=== PATIENT | male | born 1940 | race American Indian/Alaskan Native ===

== ENCOUNTER → 2023-04-28 10:39 | Outpatient (BNVA) | payer MEDICARE, MEDICAID, SELFPAY | PROVIDERS: Visit Provider Internal Medicine Hypertension Specialist ==

== ENCOUNTER 2023-05-20 13:38 | Outpatient (AMB) | payer MEDICARE, MEDICAID, SELFPAY ==
--- NOTE | 2023-05-20 14:07 | HO.NEPHOV ---
HPI HPI Comments History of Present Illness Details Marky Luna is an 81 year old man with prostate cancer who self referred him to me for flank pain and dark urine. Around 1989? when he underwent a TURP that revealed prostate cancer that was treated with radioactive seeds. In 2005 he had a PSA of 5.2 and in 11/2005 he underwent a set of prostate biopsies which revealed a [place] 6 adenocarcinoma in one location. He reports that he has been on injections (GnRH agonist) for many years and the records indicate that it was intermittent. His PSA decreased to the 2?3 range until 2010 when it was 4.2. It gradually increased until 05/2013 when it was 27.3 and then started to decrease slowly over time to a bing of 7.3 in 07/2016. Imaging in the recent past has not revealed any evidence of metastatic disease (T8 abnormality on bone scan was negative on CT). His PSA has been very gradually trending up (10.9). Oncologist had recommended the addition of enzalutamide which he refused due to side effects. He does not have any hematuria. He denied dysuria, nausea, fever, pedal edema, joint pain, epistaxis, hemoptysis, hematemesis or melena. His renal functions have been normal and his blood pressure is currently at goal. [facility] Medical History (Updated 06/07/23 @ 17:00 by Rigoberto Edmondson MD) Adenoma of colon Cancer of prostate COPD (chronic obstructive pulmonary disease) HTN (hypertension) Lumbar facet joint pain Pancreatic duct dilated Constipation Cervical spinal stenosis Osteoporosis Hyperlipidemia Hearing loss Asthma Surgical History History of partial colectomy H/O arthroscopy of knee S/P TURP (transurethral resection of prostate) Social History Alcohol intake: current Alcohol intake frequency: a few times a week Alcohol type: beer Patient Tobacco Use Status: Never used Tobacco Vital Signs 05/20/23 14:08 Height 5 ft 9 in Weight 119 lb BMI 17.6 BP 130/60 Blood Pressure Location Rt brachial Position Sitting Pulse 82 Pulse Source Pulse Oximeter Pulse Oximetry (%) 97 Oxygen Delivery Method Room Air Physical Exam Vital Signs: Last Vital Signs Pulse 82 05/20/23 14:08 BP 130/60 05/20/23 14:08 Pulse Ox 97 05/20/23 14:08 Oxygen Delivery Method Room Air 05/20/23 14:08 BMI result Body Mass Index 17.6 Const Other: Frail General: comfortable and no acute distress Orientation/consciousness: patient oriented x3 HEENT Head: Yes normocephalic Mouth: Normal oral and palatal mucosa present Eyes EOM: EOMs intact bilaterally Neck Neck: Yes supple Resp Auscultation: clear to auscultation bilaterally Cardio Jugular venous distension: no JVD Rate: regular rate GI Palpation (GI): Soft to palpation Auscultation: normal bowel sounds General: Yes no CVA tenderness Back/Spine/Pelvis Back: no CVA tenderness Skin General skin exam: no rashes or lesions noted Neuro General: patient oriented x3 and moves all extremities Extrem General: Yes no pedal edema Assessment & Plan Assessment & Plan (1) HTN (hypertension): Code(s): I10 - Essential (primary) hypertension Qualifiers: Hypertension type: primary hypertension Qualified Code(s): I10 - Essential (primary) hypertension (2) Dark urine: Code(s): R82.998 - Other abnormal findings in urine Plan Marky has longstanding hypertension with normal renal function. He has prostate cancer and is followed by Urology as well as Oncology. I have ordered urinalysis, urine culture and repeat renal function. He had multiple imaging studies done by Oncology which has not shown any metastatic disease yet. He was encouraged to maintain good hydration and avoid nonsteroidal anti-inflammatories. He is taking nifedipine which is keeping his blood pressure at goal. His volume status is optimal and his recent electrolytes were acceptable. I did not make any medication changes today. I discussed the possibilities which may be causing dark urine and flank pain. Further management is pending evolving data. Answered all questions Orders: Orders Urine Culture 05/20/23 I10 - Essential (primary) hypertension, R82.998 - Other abnormal findings in urine UA and rflx microscopic 05/20/23 I10 - Essential (primary) hypertension, R82.998 - Other abnormal findings in urine Blood Urea Nitrogen 05/20/23 I10 - Essential (primary) hypertension, R82.998 - Other abnormal findings in urine Creatinine 05/20/23 I10 - Essential (primary) hypertension, R82.998 - Other abnormal findings in urine Electrolytes 05/20/23 I10 - Essential (primary) hypertension, R82.998 - Other abnormal findings in urine Coding Level of Care Code New Pt Level 4 (34629) Diagnoses Primary hypertension I10 Hypertension type: primary hypertension Dark urine R82.998 Results Reviewed Nephrology Results: Sodium 142 mmol/L (135-145) 06/02/23 Potassium 3.7 mmol/L (3.3-5.1) 06/02/23 Chloride 109 mmol/L (96-108) H 06/02/23 Carbon Dioxide 25 mmol/L (22-29) 06/02/23 BUN 27 mg/dL (9-16) H 06/02/23 Creatinine 0.79 mg/dL (0.5-1.4) 06/02/23
[2023-05-20 14:08] VITALS: BP 130/60; PULSE 82; O2SAT 97; BMI 17.6
== END 2023-05-20 14:54 | disposition home or self-care (01) ==
PROVIDERS: Visit Provider Internal Medicine Nephrology
DX: I10 Essential (primary) hypertension (principal); R82.998 Other abnormal findings in urine
CPT/HCPCS: 99204

== ENCOUNTER → 2023-05-20 13:38 | Outpatient (BNVA) | payer MEDICARE, MEDICAID, SELFPAY | PROVIDERS: Visit Provider Internal Medicine Nephrology | DX: I10 Essential (primary) hypertension (principal); R82.998 Other abnormal findings in urine | CPT/HCPCS: 99202 ==

== ENCOUNTER 2023-06-02 14:27 | Outpatient (REF) | payer MEDICARE, MEDICAID, SELFPAY ==
[2023-06-02 17:31] LABS: Anion Gap 12 (12-20); Blood Urea Nitrogen 27 mg/dL (9-16); Carbon Dioxide 25 mmol/L (22-29); Chloride 109 mmol/L (96-108); Estimated Glomerular Filt Rate > 60; Potassium 3.7 mmol/L (3.3-5.1); Sodium 142 mmol/L (135-145)
== END 2023-06-02 14:28 | disposition home or self-care (01) ==
LOC: HO.HKASLDS 14:27
PROVIDERS: Visit Provider Internal Medicine Nephrology
DX: I10 Essential (primary) hypertension (principal); R82.998 Other abnormal findings in urine
CPT/HCPCS: 36415; 80051; 82565; 84520

== ENCOUNTER 2023-06-15 08:29 | Outpatient (REF) | payer MEDICARE, MEDICAID, SELFPAY ==
[2023-06-15 13:35] LABS: Appearance Urine Clear; Color Urine Yellow; Glucose Urine UA Negative (Negative); Leukocyte Esterase Urine Negative (Negative); Nitrite Urine Negative (Negative); PH 6.5 (5.0-9.0); Specific Gravity - Urine 1.025 (1.005-1.025); Urine Blood Negative (Negative); Urine Ketones Negative (Negative); Urine Protein Negative (Neg-Trace)
== END 2023-06-15 08:30 | disposition home or self-care (01) ==
LOC: HO.HKASLDS 08:29
PROVIDERS: Visit Provider Internal Medicine Nephrology
DX: R82.998 Other abnormal findings in urine (principal); I10 Essential (primary) hypertension
CPT/HCPCS: 81003; 87086; 99212

== ENCOUNTER 2023-06-15 11:47 | Outpatient (AMB) | payer MEDICARE, MEDICAID, SELFPAY ==
[2023-06-15 11:51] VITALS: BP 140/90; PULSE 71; O2SAT 95
--- NOTE | 2023-06-15 11:51 | HO.NEPHOV ---
HPI HPI Comments History of Present Illness Details Marky Luna is an 81 year old man with prostate cancer who self referred him to me for flank pain and dark urine. Around 1989? when he underwent a TURP that revealed prostate cancer that was treated with radioactive seeds. In 2005 he had a PSA of 5.2 and in 11/2005 he underwent a set of prostate biopsies which revealed a Lionel 6 adenocarcinoma in one location. He reports that he has been on injections (GnRH agonist) for many years and the records indicate that it was intermittent. His PSA decreased to the 2?3 range until 2010 when it was 4.2. It gradually increased until 05/2013 when it was 27.3 and then started to decrease slowly over time to a bing of 7.3 in 07/2016. Imaging in the recent past has not revealed any evidence of metastatic disease (T8 abnormality on bone scan was negative on CT). His PSA has been very gradually trending up (10.9). Oncologist had recommended the addition of enzalutamide which he refused due to side effects. He does not have any hematuria. He denied dysuria, nausea, fever, pedal edema, joint pain, epistaxis, hemoptysis, hematemesis or melena. His renal functions have been normal and his blood pressure is currently at goal. [facility] Medical History (Updated 06/07/23 @ 17:00 by Rigoberto Edmondson MD) Adenoma of colon Cancer of prostate COPD (chronic obstructive pulmonary disease) HTN (hypertension) Lumbar facet joint pain Pancreatic duct dilated Constipation Cervical spinal stenosis Osteoporosis Hyperlipidemia Hearing loss Asthma Surgical History History of partial colectomy H/O arthroscopy of knee S/P TURP (transurethral resection of prostate) Social History Alcohol intake: current Alcohol intake frequency: a few times a week Alcohol type: beer Patient Tobacco Use Status: Never used Tobacco Vital Signs 06/15/23 11:51 Height 5 ft 9 in BP 140/90 H Blood Pressure Location Lt brachial Position Sitting Pulse 71 Pulse Source Pulse Oximeter Pulse Oximetry (%) 95 Oxygen Delivery Method Room Air Physical Exam Vital Signs: Last Vital Signs Pulse 71 06/15/23 11:51 BP 150/90 H 06/15/23 11:51 Pulse Ox 95 06/15/23 11:51 Oxygen Delivery Method Room Air 06/15/23 11:51 Const General: comfortable and no acute distress Orientation/consciousness: patient oriented x3 HEENT Head: Yes normocephalic Mouth: Normal oral and palatal mucosa present Eyes EOM: EOMs intact bilaterally Neck Neck: Yes supple Resp Auscultation: clear to auscultation bilaterally Cardio Jugular venous distension: no JVD Rate: regular rate GI Palpation (GI): Soft to palpation Auscultation: normal bowel sounds General: Yes no CVA tenderness Back/Spine/Pelvis Back: no CVA tenderness Skin General skin exam: no rashes or lesions noted Neuro General: patient oriented x3 and moves all extremities Extrem General: Yes no pedal edema Assessment & Plan Assessment & Plan (1) HTN (hypertension): Code(s): I10 - Essential (primary) hypertension Qualifiers: Hypertension type: primary hypertension Qualified Code(s): I10 - Essential (primary) hypertension (2) Dark urine: Code(s): R82.998 - Other abnormal findings in urine Plan Marky has longstanding hypertension with normal renal function. He has prostate cancer and is followed by Urology as well as Oncology. urinalysis, urine culture is pending. He had multiple imaging studies done by Oncology which has not shown any metastatic disease yet. He was encouraged to maintain good hydration and avoid nonsteroidal anti-inflammatories. He is taking nifedipine which is keeping his blood pressure at goal. His volume status is optimal and his recent electrolytes were acceptable. I did not make any medication changes today. I discussed the possibilities which may be causing dark urine and flank pain. Answered all questions Coding Level of Care Code Est Pt Level 3 (95161) Diagnoses Primary hypertension I10 Hypertension type: primary hypertension Dark urine R82.998 Results Reviewed Nephrology Results: Sodium 142 mmol/L (135-145) 06/02/23 Potassium 3.7 mmol/L (3.3-5.1) 06/02/23 Chloride 109 mmol/L (96-108) H 06/02/23 Carbon Dioxide 25 mmol/L (22-29) 06/02/23 BUN 27 mg/dL (9-16) H 06/02/23 Creatinine 0.79 mg/dL (0.5-1.4) 06/02/23
== END 2023-06-15 12:10 | disposition home or self-care (01) ==
PROVIDERS: Visit Provider Internal Medicine Nephrology
DX: I10 Essential (primary) hypertension (principal); R82.998 Other abnormal findings in urine
CPT/HCPCS: 99213

== ENCOUNTER 2023-12-21 09:05 | Outpatient (AMB) | payer MEDICARE, MEDICAID, SELFPAY ==
[2023-12-21 09:38] VITALS: BP 120/72; PULSE 76; O2SAT 96; BMI 17.8
--- NOTE | 2023-12-21 09:38 | HO.NEPHOV_ITS ---
Vital Signs 12/21/23 09:38 Height 5 ft 9 in Weight 120 lb 6 oz BMI 17.8 BP 120/72 Blood Pressure Location Lt brachial Position Sitting Pulse 76 Pulse Source Pulse Oximeter Pulse Oximetry (%) 96 Oxygen Delivery Method Room Air Intake Visit Reasons: R/S 12/14/23-[facility] Director Required: No Accompanied by: Self / Same As Patient Allergies atenolol Allergy (Mild, Verified 12/21/23 09:40) Rash fluvastatin [From Lescol] Allergy (Mild, Verified 12/21/23 09:40) Rash Penicillins Allergy (Mild, Verified 12/21/23 09:40) Rash Constrast dye Allergy (Mild, Uncoded 04/21/23 15:29) N/V Lisinopril Allergy (Mild, Uncoded 04/21/23 15:29) Rash Sulfa drugs Allergy (Mild, Uncoded 04/21/23 15:29) Rash Verapamil Allergy (Mild, Uncoded 04/21/23 15:29) Rash HPI Comments Details: Marky Luna is an 83 year old man with prostate cancer who self referred him to me for flank pain and dark urine. Around 1989? when he underwent a TURP that revealed prostate cancer that was treated with radioactive seeds. In 2005 he had a PSA of 5.2 and in 11/2005 he underwent a set of prostate biopsies which revealed a [place] 6 adenocarcinoma in one location. He reports that he has been on injections (GnRH agonist) for many years and the records indicate that it was intermittent. His PSA decreased to the 2?3 range until 2010 when it was 4.2. It gradually increased until 05/2013 when it was 27.3 and then started to decrease slowly over time to a bing of 7.3 in 07/2016. Imaging in the recent past has not revealed any evidence of metastatic disease (T8 abnormality on bone scan was negative on CT). His PSA has been very gradually trending up (10.9). Oncologist had recommended the addition of enzalutamide which he refused due to side effects. He does not have any hematuria. He denied dysuria, nausea, fever, pedal edema, joint pain, epistaxis, hemoptysis, hematemesis or melena. His renal functions have been normal and his blood pressure is currently at goal. [facility] Medical History (Updated 06/07/23 @ 17:00 by Rigoberto Edmondson MD) Adenoma of colon Cancer of prostate COPD (chronic obstructive pulmonary disease) HTN (hypertension) Lumbar facet joint pain Pancreatic duct dilated Constipation Cervical spinal stenosis Osteoporosis Hyperlipidemia Hearing loss Asthma Surgical History History of partial colectomy H/O arthroscopy of knee S/P TURP (transurethral resection of prostate) Social History Alcohol intake: current Alcohol intake frequency: a few times a week Alcohol type: beer Patient Tobacco Use Status: Never used Tobacco Review of Systems Const All systems reviewed & are unremarkable except as noted in HPI and below Physical Exam Vital Signs: Last Vital Signs Pulse 76 12/21/23 09:38 BP 120/72 12/21/23 09:38 Pulse Ox 96 12/21/23 09:38 Oxygen Delivery Method Room Air 12/21/23 09:38 BMI result Body Mass Index 17.8 Const General: comfortable and no acute distress Orientation/consciousness: patient oriented x3 HEENT Head: Yes normocephalic Mouth: Normal oral and palatal mucosa present Eyes EOM: EOMs intact bilaterally Neck Neck: Yes supple Resp Auscultation: clear to auscultation bilaterally Cardio Jugular venous distension: no JVD Rate: regular rate GI Palpation (GI): Soft to palpation Auscultation: normal bowel sounds General: Yes no CVA tenderness Back/Spine/Pelvis Back: no CVA tenderness Skin General skin exam: no rashes or lesions noted Neuro General: patient oriented x3 and moves all extremities Extrem General: Yes no pedal edema Results Reviewed Nephrology Results: Sodium 142 mmol/L (135-145) 06/02/23 Potassium 3.7 mmol/L (3.3-5.1) 06/02/23 Chloride 109 mmol/L (96-108) H 06/02/23 Carbon Dioxide 25 mmol/L (22-29) 06/02/23 BUN 27 mg/dL (9-16) H 06/02/23 Creatinine 0.79 mg/dL (0.5-1.4) 06/02/23 Urine Protein Negative mg/dL (Neg-Trace) 06/15/23 Assessment & Plan Assessment & Plan (1) HTN (hypertension): Code(s): I10 - Essential (primary) hypertension Category: Medical Qualifiers: Hypertension type: primary hypertension Qualified Code(s): I10 - Essential (primary) hypertension Plan Marky has longstanding hypertension with normal renal function. He has prostate cancer and is followed by Urology as well as Oncology. He had multiple imaging studies done by Oncology which has not shown any metastatic disease yet. He was encouraged to maintain good hydration and avoid nonsteroidal anti-inflammato oscar. He is taking nifedipine which is keeping his blood pressure at goal. His volume status is optimal and his recent electrolytes were acceptable. I did not make any medication changes today. Answered all questions Coding Level of Care Code Est Pt Level 4 (62105) Diagnoses Primary hypertension I10 Hypertension type: primary hypertension
== END 2023-12-21 09:51 | disposition home or self-care (01) ==
PROVIDERS: Visit Provider Internal Medicine Nephrology
DX: I10 Essential (primary) hypertension (principal)
CPT/HCPCS: 99214

== ENCOUNTER → 2023-12-21 09:05 | Outpatient (BNVA) | payer MEDICARE, MEDICAID, SELFPAY | PROVIDERS: Visit Provider Internal Medicine Nephrology | DX: I10 Essential (primary) hypertension (principal) | CPT/HCPCS: 99212 ==

== ENCOUNTER 2024-06-20 09:11 | Outpatient (AMB) | payer MEDICARE, MEDICAID, SELFPAY ==
--- NOTE | 2024-06-20 09:30 | HO.NEPHOV_ITS ---
Vital Signs 06/20/24 09:35 Height 5 ft 9 in BP 130/70 Blood Pressure Location Rt brachial Position Sitting Intake Visit Reasons: 6 mon follow up-[employer] Supervisor Required: No Accompanied by: Self / Same As Patient Allergies atenolol Allergy (Mild, Verified 06/20/24 09:35) Rash fluvastatin [From Lescol] Allergy (Mild, Verified 06/20/24 09:35) Rash Penicillins Allergy (Mild, Verified 06/20/24 09:35) Rash Constrast dye Allergy (Mild, Uncoded 04/21/23 15:29) N/V Lisinopril Allergy (Mild, Uncoded 04/21/23 15:29) Rash Sulfa drugs Allergy (Mild, Uncoded 04/21/23 15:29) Rash Verapamil Allergy (Mild, Uncoded 04/21/23 15:29) Rash HPI Comments Details: 83 year old man with prostate cancer recently had fall with injuries and was seen in hospital and rehab. Around 1989? when he underwent a TURP that revealed prostate cancer that was treated with radioactive seeds. In 2005 he had a PSA of 5.2 and in 11/2005 he underwent a set of prostate biopsies which revealed a Lionel 6 adenocarcinoma in one location. He reports that he has be en on injections (GnRH agonist) for many years and the records indicate that it was intermittent. His PSA decreased to the 2?3 range until 2010 when it was 4.2. It gradually increased until 05/2013 when it was 27.3 and then started to decrease slowly over time to a bing of 7.3 in 07/2016. Imaging in the recent past has not revealed any evidence of metastatic disease (T8 abnormality on bone scan was negative on CT). His PSA has been very gradually trending up (10.9). Oncologist is seeing him closely. He does not have any hematuria. He denied dysuria, nausea, fever, pedal edema, joint pain, epistaxis, hemoptysis, hematemesis or melena. His renal functions have been normal and his blood pressure is currently at goal. [facility] Medical History (Updated 06/07/23 @ 17:00 by Rigoberto Edmondson MD) Adenoma of colon Cancer of prostate COPD (chronic obstructive pulmonary disease) HTN (hypertension) Lumbar facet joint pain Pancreatic duct dilated Constipation Cervical spinal stenosis Osteoporosis Hyperlipidemia Hearing loss Asthma Surgical History History of partial colectomy H/O arthroscopy of knee S/P TURP (transurethral resection of prostate) Social History Alcohol intake: current Alcohol intake frequency: a few times a week Alcohol type: beer Patient Tobacco Use Status: Never used Tobacco Review of Systems Const All systems reviewed & are unremarkable except as noted in HPI and below Physical Exam Vital Signs: Last Vital Signs BP 130/70 06/20/24 09:35 Const General: comfortable and no acute distress Orientation/consciousness: patient oriented x3 HEENT Head: Yes normocephalic Mouth: Normal oral and palatal mucosa present Eyes EOM: EOMs intact bilaterally Neck Neck: Yes supple Resp Auscultation: clear to auscultation bilaterally Cardio Jugular venous distension: no JVD Rate: regular rate GI Palpation (GI): Soft to palpation Auscultation: normal bowel sounds Neuro General: patient oriented x3 and moves all extremities Extrem General: Yes no pedal edema Assessment & Plan Assessment & Plan (1) HTN (hypertension): Code(s): I10 - Essential (primary) hypertension Category: Medical Qualifiers: Hypertension type: primary hypertension Qualified Code(s): I10 - Essential (primary) hypertension Plan Marky has longstanding hypertension with normal renal function. He has prostate cancer and is followed by Urology as well as Oncology. He had multiple imaging studies done by Oncology which has not shown any metastatic disease yet. He was encouraged to maintain good hydration and avoid nonsteroidal anti- inflammatories. He is taking nifedipine which is keeping his blood pressure at goal. His volume status is optimal and his recent electrolytes were acceptable. I did not make any medication changes today. Answered all questions Orders: Orders Creatinine 6 Months I10 - Essential (primary) hypertension Blood Urea Nitrogen 6 Months I10 - Essential (primary) hypertension Electrolytes 6 Months I10 - Essential (primary) hypertension Calcium 6 Months I10 - Essential (primary) hypertension Coding Level of Care Code Est Pt Level 4 (26096) Diagnoses Primary hypertension I10 Hypertension type: primary hypertension
[2024-06-20 09:35] VITALS: BP 130/70
--- OUTSIDE RECORDS SUMMARY | 2024-06-20 10:14 | XMS_ITS | Clinical Summary ---
Author Organization [address] [facility] Address [address] [place] [address] Phone Care Team Providers Care Sheet Rock Installer Name Role Phone Beth Villarreal MD Primary Care Provider [phone] Encounters Date Type Department Care Team Description 04/11/2024 Lab Requisition [facility] - Main Lab [address] [place] [address] Beth Villarreal MD Chronic obstructive pulmonary disease, unspecified (CMS/HCC) from Last 3 Months Immunizations Name Administration Dates Next Due Moderna SARS-CoV-2 COVID-19, mRNA, LNP-S, preservative free 07/22/2021,03/13/2021 Pfizer SARS-CoV-2 COVID-19, mRNA, LNP-S, preservative free 01/19/2022 Social History Tobacco Use Types Packs/Day Years Used Date Smoking Tobacco: Never Assessed Sex and Gender Information Value Date Recorded Sex Assigned at Not on file Legal Sex Male 5:15 PM EST Gender Identity Not on file Sexual Orientation Not on file Plan of Treatment Health Maintenance Due Date Last Done Comments DTaP,Tdap,and Td Vaccines (1 - Tdap) 08/05/1959 Pneumococcal Vaccine: 50+ Years (1 of 2 - PCV) 08/05/1959 Zoster Vaccines (1 of 2) 1990 RSV Immunization Patients 60+ Years Old (1 - 1-dose 75+ series) 08/05/2015 Cholesterol Screening (Lipid Panel) 03/14/2022 Depression Screening 03/14/2022 Falls Risk Assessment 03/14/2022 Medicare Annual Wellness Visit 03/14/2022 Social Influencers of Health Screening 03/14/2022 COVID-19 Vaccine ( season) 2023 01/19/2022, 07/22/2021, 03/13/2021 Influenza Vaccine (#1) 2023 Hypertension/CHF/CAD Annual BMP Blood Test 04/11/2025 04/11/2024, 02/28/2024, 02/21/2024, Additional history exists HIB Vaccines Aged Out No longer eligi ble based on patient's age to complete this topic HPV Vaccines Aged Out No longer eligi ble based on patient's age to complete this topic Hepatitis A Vaccines Aged Out No long er eligible based on patient's age to complete this topic Hepatitis B Vaccines Aged Out No long er eligible based on patient's age to complete this topic IPV Vaccines Aged Out No longer eligi ble based on patient's age to complete this topic MMR Vaccines Aged Out No longer eligi ble based on patient's age to complete this topic Meningococcal ACWY Vaccine Aged Out N o longer eligible based on patient's age to complete this topic Meningococcal B Vacine Aged Out No lo nger eligible based on patient's age to complete this topic RSV Immunization Patients Under 20 months Aged Out No longer eligible based on patient's age to complete this topic Varicella Vaccines Aged Out No longer eligible based on patient's age to complete this topic Procedures Procedure Name Priority Date/Time Associated Diagnosis Comments BASIC METABOLIC PANEL Routine 04/11/2024 6:05 AM EST Chronic obstructive pulmonary disease, unspecified (CMS/HCC) COMPLETE BLOOD COUNT Routine 04/11/2024 6:05 AM EST Chronic obstructive pulmonary disease, unspecified (CMS/HCC) from Last 3 Months Results * (ABNORMAL) Complete blood count (04/11/2024 6:05 AM EST) [facility] Signature WBC 6.1 4.8 - 10.8 K/[facility] LAB HEMETOLOGY METHOD 04/11/2024 10:24 AM EST [facility] ([facility] LAB RBC 3.90(L) 4.50 - 5.50 M/[facility] LAB HEMETOLOGY METHOD 04/11/2024 10:24 AM [facility] LAB Hemoglobin 11.8(L) 13.5 - 17.5 g/dL LAB HEMETOLOGY METHOD 04/11/2024 10:24 AM [facility] LAB Hematocrit 36.7(L) 42.0 - 54.0 % LAB HEMETOLOGY METHOD 04/11/2024 10:24 AM [facility] LAB MCV 93.4 79.0 - 98.0 FL LAB HEMETOLOGY METHOD 04/11/2024 10:24 AM [facility] LAB MCH 30.0 27.0 - 32.0 pcg LAB HEMETOLOGY METHOD 04/11/2024 10:24 AM [facility] LAB MCHC 32.2 32.0 - 37.0 g/dL LAB HEMETOLOGY METHOD 04/11/2024 10:24 AM [facility] LAB RDW 14.6 11.0 - 15.0 % LAB HEMETOLOGY METHOD 04/11/2024 10:24 AM [facility] LAB Platelets 216 130 - 400 K/mcL LAB HEMETOLOGY METHOD 04/11/2024 10:24 AM [facility] LAB MPV 10.3 7.0 - 11.0 FL LAB HEMETOLOGY METHOD 04/11/2024 10:24 AM [facility] LAB NRBC 0.0 <1.0 % LAB HEMETOLOGY METHOD 04/11/2024 10:24 AM [facility] LAB NRBC Absolute 0.00 <0.10 K/mcL LAB HEMETOLOGY METHOD 04/11/2024 10:24 AM [facility] LAB Blood Venous blood specimen / Unknown Venipuncture / Unknown 04/11/2024 6:05 AM EST 04/11/2024 9:57 AM EST Beth Villarreal MD LAB BLOOD ORDERABLES Final Resul t [facility] LAB [address] [place] [address], * Basic metabolic panel (04/11/2024 6:05 AM EST) Sodium 139 133 - 145 mmol/L LAB CHEMISTRY METHOD 04/11/2024 10:48 AM [facility] LAB Potassium 3.8 3.5 - 5.5 mmol/L LAB CHEMISTRY METHOD 04/11/2024 10:48 AM [facility] LAB Chloride 107 96 - 110 mmol/L LAB CHEMISTRY METHOD 04/11/2024 10:48 AM [facility] LAB CO2 28 21 - 32 mmol/L LAB CHEMISTRY METHOD 04/11/2024 10:48 AM [facility] LAB Anion Gap 4 3 - 11 LAB CHEMISTRY METHOD 04/11/2024 10:48 AM [facility] LAB Glucose 88 70 - 100 mg/dL LAB CHEMISTRY METHOD 04/11/2024 10:48 AM [facility] LAB BUN 20 5 - 25 mg/dL LAB CHEMISTRY METHOD 04/11/2024 10:48 AM [facility] LAB Creatinine 0.78 0.70 - 1.30 mg/dL LAB CHEMISTRY METHOD 04/11/2024 10:48 AM [facility] LAB eGFR 88 >=60 mL/min/1. 73m2 LAB CHEMISTRY METHOD 04/11/2024 10:48 AM [facility] LAB Comment:Calculation based on the??Chronic Kidney Disease Epidemiology Collaboration (CKD-EPI) equation refit??without adjustment for race. BUN/Creatinine Ratio 25.6 LAB CHEMISTRY METHOD 04/11/2024 10:48 AM [facility] LAB Calcium 9.3 8.5 - 10.5 mg/dL LAB CHEMISTRY METHOD 04/11/2024 10:48 AM [facility] LAB Blood Venous blood specimen / Unknown Venipuncture / Unknown 04/11/2024 6:05 AM EST 04/11/2024 9:57 AM EST Beth Villarreal MD LAB BLOOD ORDERABLES Final Resul t [facility] ([facility]) [facility] [address] [place] [address], [place] [phone] from Last 3 [place] [address] MEDICARE MEDICAID - [place] Care Teams Sheet Rock Installer Relationship Specialty Start Date End Date Beth Villarreal MD [address] [place] [address] PCP - General Geriatric Medicine 04/11/24
--- OUTSIDE RECORDS SUMMARY | 2024-06-20 10:14 | XMS_ITS | Encounter Summary ---
Author Organization [facility] Address [address] [place] [address] Care Team Providers Care Motors And Controls Tester Name Role Phone Beth Villarreal MD Primary Care Provider [phone] Encounter Details Date Type Department Care Team (Late st Contact Info) Description 02/12/2024 Lab Requisition [facility] - Main Lab [address] [facility] [place] [address] Beth Villarreal MD [address] [place] [address] Essential (primary) hypertension Social History Tobacco Use Types Packs/Day Years Used Date Smoking Tobacco: Never Assessed Sex and Gender Information Value Date Recorded Sex Assigned at Not on file Legal Sex Male 5:15 PM EST Gender Identity Not on file Sexual Orientation Not on file documented as of this encounter Plan of Treatment Not on file documented as of this encounter Procedures Procedure Name Priority Date/Time Associated Diagnosis Comments TRAVEL PHLEBOTOMY FEE Routine 02/14/2024 8:23 AM EST Essential (primary) hypertension COMPLETE BLOOD COUNT Routine 02/14/2024 8:23 AM EST Essential (primary) hypertension BASIC METABOLIC PANEL Routine 02/14/2024 8:23 AM EST Essential (primary) hypertension documented in this encounter Results * Travel phlebotomy fee (02/14/2024 8:23 AM EST) [facility] TRAVEL PHLEBOTOMY FEE Completed 02/14/2024 2:01 PM [facility] LAB Blood Venous blood specimen / Unknown Venipuncture / Unknown 02/14/2024 8:23 AM EST 02/14/2024 1:24 PM EST us Beth Villarreal MD LAB BLOOD ORDERABLES Final Resul t [facility] LAB [address] [place] [address], * Basic metabolic panel (02/14/2024 8:23 AM EST) Sodium 139 133 - 145 mmol/L LAB CHEMISTRY METHOD 02/14/2024 3:32 PM [facility] LAB Potassium 3.9 3.5 - 5.5 mmol/L LAB CHEMISTRY METHOD 02/14/2024 3:32 PM [facility] LAB Chloride 104 96 - 110 mmol/L LAB CHEMISTRY METHOD 02/14/2024 3:32 PM [facility] LAB CO2 29 21 - 32 mmol/L LAB CHEMISTRY METHOD 02/14/2024 3:32 PM [facility] LAB Anion Gap 6 3 - 11 LAB CHEMISTRY METHOD 02/14/2024 3:32 PM [facility] LAB Glucose 80 70 - 100 mg/dL LAB CHEMISTRY METHOD 02/14/2024 3:32 PM [facility] BUN 13 5 - 25 mg/dL LAB CHEMISTRY METHOD 02/14/2024 3:32 PM [facility] Creatinine 0.92 0.70 - 1.30 mg/dL LAB CHEMISTRY METHOD 02/14/2024 3:32 PM [facility] LAB eGFR 83 >=60 mL/min/1. 73m2 LAB CHEMISTRY METHOD 02/14/2024 3:32 PM [facility] LAB Comment:Calculation based on the??Chronic Kidney Disease Epidemiology Collaboration (CKD-EPI) equation refit??without adjustment for race. BUN/Creatinine Ratio 14.1 LAB CHEMISTRY METHOD 02/14/2024 3:32 PM EST [facility] Calcium 9.8 8.5 - 10.5 mg/dL LAB CHEMISTRY METHOD 02/14/2024 3:32 PM [facility] Blood Venous blood specimen / Unknown Venipuncture / Unknown 02/14/2024 8:23 AM EST 02/14/2024 1:24 PM EST us Beth Villarreal MD LAB BLOOD ORDERABLES Final Resul t [facility] [address] [place] [address], [place] [phone] * (ABNORMAL) Complete blood count (02/14/2024 8:23 AM EST) WBC 5.0 4.8 - 10.8 K/mcL LAB HEMETOLOGY METHOD 02/14/2024 1:57 PM [facility] RBC 3.70(L) 4.50 - 5.50 M/mcL LAB HEMETOLOGY METHOD 02/14/2024 1:57 PM [facility] Hemoglobin 11.1(L) 13.5 - 17.5 g/dL LAB HEMETOLOGY METHOD 02/14/2024 1:57 PM [facility] LAB Hematocrit 35.0(L) 42.0 - 54.0 % LAB HEMETOLOGY METHOD 02/14/2024 1:57 PM [facility] LAB MCV 93.8 79.0 - 98.0 FL LAB HEMETOLOGY METHOD 02/14/2024 1:57 PM [facility] LAB MCH 29.8 27.0 - 32.0 pcg LAB HEMETOLOGY METHOD 02/14/2024 1:57 PM [facility] LAB MCHC 31.7(L) 32.0 - 37.0 g/dL LAB HEMETOLOGY METHOD 02/14/2024 1:57 PM EST [facility] LAB RDW 13.1 11.0 - 15.0 % LAB HEMETOLOGY METHOD 02/14/2024 1:57 PM EST [facility] LAB Platelets 372 130 - 400 K/mcL LAB HEMETOLOGY METHOD 02/14/2024 1:57 PM [facility] LAB MPV 9.6 7.0 - 11.0 FL LAB HEMETOLOGY METHOD 02/14/2024 1:57 PM EST [facility] LAB NRBC 0.0 <1.0 % LAB HEMETOLOGY METHOD 02/14/2024 1:57 PM [facility] LAB NRBC Absolute 0.00 <0.10 K/mcL LAB HEMETOLOGY METHOD 02/14/2024 1:57 PM [facility] LAB Blood Venous blood specimen / Unknown Venipuncture / Unknown 02/14/2024 8:23 AM EST 02/14/2024 1:24 PM EST us Beth Villarreal MD LAB BLOOD ORDERABLES Final Resul t [facility] [address] [place] [address], documented in this encounter Visit Diagnoses Diagnosis Essential (primary) hypertension Unspecified essential hypertension documented in this encounter Care Teams Motors And Controls Tester Relationship Specialty Start Date End Date Beth Villarreal MD [address] [place] [address] [address] [place] [address] PCP - General Geriatric Medicine 04/11/24 documented as of this encounter
--- OUTSIDE RECORDS SUMMARY | 2024-06-20 10:14 | XMS_ITS | Encounter Summary ---
Author Organization [facility] Address [address] [place] [address] Care Team Providers Care Commercial Interior Designer Name Role Phone Beth Villarreal MD Primary Care Provider [phone] Encounter Details Date Type Department Care Team (Late st Contact Info) Description 02/18/2024 Lab Requisition [facility] - Main Lab [address] [facility] [place] [address] Beth Villarreal MD [address] [place] [address] Essential (primary) hypertension Social History Tobacco Use [...] Procedure Name Priority Date/Time Associated Diagnosis Comments COMPLETE BLOOD COUNT Routine 02/21/2024 9:28 AM EST Essential (primary) hypertension BASIC METABOLIC PANEL Routine 02/21/2024 9:28 AM EST Essential (primary) hypertension documented in this encounter Results * Basic metabolic panel (02/21/2024 9:28 AM EST) Sodium 141 133 - 145 mmol/L LAB CHEMISTRY METHOD 02/21/2024 1:25 PM EST [facility] Potassium 4.6 3.5 - 5.5 mmol/L LAB CHEMISTRY METHOD 02/21/2024 1:25 PM [facility] LAB Chloride 107 96 - 110 mmol/L LAB CHEMISTRY METHOD 02/21/2024 1:25 PM [facility] LAB CO2 29 21 - 32 mmol/L LAB CHEMISTRY METHOD 02/21/2024 1:25 PM [facility] LAB Anion Gap 5 3 - 11 LAB CHEMISTRY METHOD 02/21/2024 1:25 PM [facility] LAB Glucose 90 70 - 100 mg/dL LAB CHEMISTRY METHOD 02/21/2024 1:25 PM [facility] BUN 16 5 - 25 mg/dL LAB CHEMISTRY METHOD 02/21/2024 1:25 PM [facility] LAB Creatinine 0.86 0.70 - 1.30 mg/dL LAB CHEMISTRY METHOD 02/21/2024 1:25 PM [facility] LAB eGFR 86 >=60 mL/min/1. 73m2 LAB CHEMISTRY METHOD 02/21/2024 1:25 PM [facility] LAB Comment:Calculation based on the??Chronic Kidney Disease Epidemiology Collaboration (CKD-EPI) equation refit??without adjustment for race. BUN/Creatinine Ratio 18.6 LAB CHEMISTRY METHOD 02/21/2024 1:25 PM [facility] LAB Calcium 9.7 8.5 - 10.5 mg/dL LAB CHEMISTRY METHOD 02/21/2024 1:25 PM [facility] LAB Blood Venous blood specimen / Unknown Venipuncture / Unknown 02/21/2024 9:28 AM EST 02/21/2024 11:54 AM EST us Beth Villarreal MD LAB BLOOD ORDERABLES Final Resul t [facility] LAB [address] [place] [address], * (ABNORMAL) Complete blood count (02/21/2024 9:28 AM EST) [facility] Signature WBC 4.5(L) 4.8 - 10.8 K/mcL LAB HEMETOLOGY METHOD 02/21/2024 1:10 PM [facility] LAB RBC 3.80(L) 4.50 - 5.50 M/mcL LAB HEMETOLOGY METHOD 02/21/2024 1:10 PM [facility] Hemoglobin 11.3(L) 13.5 - 17.5 g/dL LAB HEMETOLOGY METHOD 02/21/2024 1:10 PM [facility] LAB Hematocrit 36.6(L) 42.0 - 54.0 % LAB HEMETOLOGY METHOD 02/21/2024 1:10 PM [facility] LAB MCV 95.8 79.0 - 98.0 FL LAB HEMETOLOGY METHOD 02/21/2024 1:10 PM [facility] LAB MCH 29.6 27.0 - 32.0 pcg LAB HEMETOLOGY METHOD 02/21/2024 1:10 PM [facility] LAB MCHC 30.9(L) 32.0 - 37.0 g/dL LAB HEMETOLOGY METHOD 02/21/2024 1:10 PM [facility] LAB RDW 13.9 11.0 - 15.0 % LAB HEMETOLOGY METHOD 02/21/2024 1:10 PM [facility] LAB Platelets 380 130 - 400 K/mcL LAB HEMETOLOGY METHOD 02/21/2024 1:10 PM [facility] LAB MPV 9.6 7.0 - 11.0 FL LAB HEMETOLOGY METHOD 02/21/2024 1:10 PM [facility] NRBC 0.0 <1.0 % LAB HEMETOLOGY METHOD 02/21/2024 1:10 PM [facility] NRBC Absolute 0.00 <0.10 K/mcL LAB HEMETOLOGY METHOD 02/21/2024 1:10 PM EST [facility] Blood Venous blood specimen / Unknown Venipuncture / Unknown 02/21/2024 9:28 AM EST 02/21/2024 11:58 AM EST Beth Villarreal MD LAB BLOOD ORDERABLES Final Resul t [facility] [address] [place] [address], documented in this encounter Visit Diagnoses Diagnosis Essential (primary) hypertension Unspecified essential hypertension documented in this encounter Care Teams Commercial Interior Designer Relationship Specialty Start Date End Date Beth Villarreal MD [address] [place] [address] [address] [place] [address] PCP - General Geriatric Medicine 04/11/24 documented as of this encounter
--- OUTSIDE RECORDS SUMMARY | 2024-06-20 10:14 | XMS_ITS | Encounter Summary ---
Author Organization [facility] Address [address] [place] [address] Care Team Providers Care Psychologists Name Role Phone Beth Villarreal MD Primary Care Provider [phone] Encounter Details Date Type Department Care Team (Late st Contact Info) Description 02/25/2024 Lab Requisition [facility] - Main Lab [address] [facility] [place] [address] Beth Villarreal MD [address] [place] [address] Essential (primary) hypertension Social History Tobacco Use [...] Associated Diagnosis Comments COMPLETE BLOOD COUNT Routine 02/28/2024 8:33 AM EST Essential (primary) hypertension BASIC METABOLIC PANEL Routine 02/28/2024 8:33 AM EST Essential (primary) hypertension documented in this encounter Results * Basic metabolic panel (02/28/2024 8:33 AM EST) Sodium 142 133 - 145 mmol/L LAB CHEMISTRY METHOD 02/28/2024 3:21 PM EST [facility] Potassium 4.3 3.5 - 5.5 mmol/L LAB CHEMISTRY METHOD 02/28/2024 3:21 PM [facility] Chloride 109 96 - 110 mmol/L LAB CHEMISTRY METHOD 02/28/2024 3:21 PM [facility] CO2 28 21 - 32 mmol/L LAB CHEMISTRY METHOD 02/28/2024 3:21 PM [facility] Anion Gap 5 3 - 11 LAB CHEMISTRY METHOD 02/28/2024 3:21 PM [facility] Glucose 83 70 - 100 mg/dL LAB CHEMISTRY METHOD 02/28/2024 3:21 PM [facility] BUN 16 5 - 25 mg/dL LAB CHEMISTRY METHOD 02/28/2024 3:21 PM [facility] Creatinine 0.83 0.70 - 1.30 mg/dL LAB CHEMISTRY METHOD 02/28/2024 3:21 PM [facility] LAB eGFR 87 >=60 mL/min/1. 73m2 LAB CHEMISTRY METHOD 02/28/2024 3:21 PM [facility] Comment:Calculation based on the??Chronic Kidney Disease Epidemiology Collaboration (CKD-EPI) equation refit??without adjustment for race. BUN/Creatinine Ratio 19.3 LAB CHEMISTRY METHOD 02/28/2024 3:21 PM [facility] Calcium 9.9 8.5 - 10.5 mg/dL LAB CHEMISTRY METHOD 02/28/2024 3:21 PM [facility] Blood Venous blood specimen / Unknown Venipuncture / Unknown 02/28/2024 8:33 AM EST 02/28/2024 11:40 AM EST us eBth Villarreal MD LAB BLOOD ORDERABLES Final Resul t [facility] [address] [place] [address], * (ABNORMAL) Complete blood count (02/28/2024 8:33 AM EST) [facility] WBC 4.2(L) 4.8 - 10.8 K/mcL LAB HEMETOLOGY METHOD 02/28/2024 1:08 PM [facility] RBC 3.90(L) 4.50 - 5.50 M/mcL LAB HEMETOLOGY METHOD 02/28/2024 1:08 PM [facility] Hemoglobin 11.7(L) 13.5 - 17.5 g/dL LAB HEMETOLOGY METHOD 02/28/2024 1:08 PM [facility] Hematocrit 37.3(L) 42.0 - 54.0 % LAB HEMETOLOGY METHOD 02/28/2024 1:08 PM [facility] MCV 95.9 79.0 - 98.0 FL LAB HEMETOLOGY METHOD 02/28/2024 1:08 PM [facility] MCH 30.1 27.0 - 32.0 pcg LAB HEMETOLOGY METHOD 02/28/2024 1:08 PM [facility] MCHC 31.4(L) 32.0 - 37.0 g/dL LAB HEMETOLOGY METHOD 02/28/2024 1:08 PM [facility] RDW 14.2 11.0 - 15.0 % LAB HEMETOLOGY METHOD 02/28/2024 1:08 PM [facility] Platelets 234 130 - 400 K/mcL LAB HEMETOLOGY METHOD 02/28/2024 1:08 PM [facility] MPV 10.1 7.0 - 11.0 FL LAB HEMETOLOGY METHOD 02/28/2024 1:08 PM [facility] NRBC 0.0 <1.0 % LAB HEMETOLOGY METHOD 02/28/2024 1:08 PM [facility] NRBC Absolute 0.00 <0.10 K/mcL LAB HEMETOLOGY METHOD 02/28/2024 1:08 PM EST [facility] Blood Venous blood specimen / Unknown Venipuncture / Unknown 02/28/2024 8:33 AM EST 02/28/2024 11:40 AM EST Beth Villarreal MD LAB BLOOD ORDERABLES Final Resul t [facility] [address] [place] [address], documented in this encounter Visit Diagnoses Diagnosis Essential (primary) hypertension Unspecified essential hypertension documented in this encounter Care Teams Psychologists Relationship Specialty Start Date End Date Beth Villarreal MD [address] [place] [address] [address] [place] [address] PCP - General Geriatric Medicine 04/11/24 documented as of this encounter
--- OUTSIDE RECORDS SUMMARY | 2024-06-20 10:14 | XMS_ITS | Encounter Summary ---
Author Organization [facility] Address [address] [place] [address] Care Team Providers Care Medical Doctor Name Role Phone Beth Villarreal MD Primary Care Provider [phone] Encounter Details Date Type Department Care Team (Late st Contact Info) Description 04/11/2024 Lab Requisition [facility] - Main Lab 299 [facility] [place] [address] Beth Villarreal MD [address] [place] [address] Chronic obstructive pulmonary disease, unspecified (CMS/HCC) Social History Tobacco Use Types Packs/Day Years [...] Associated Diagnosis Comments COMPLETE BLOOD COUNT Routine 04/11/2024 6:05 AM EST Chronic obstructive pulmonary disease, unspecified (CMS/HCC) BASIC METABOLIC PANEL Routine 04/11/2024 6:05 AM EST Chronic obstructive pulmonary disease, unspecified (CMS/HCC) documented in this encounter Results * Basic metabolic panel (04/11/2024 6:05 AM EST) Sodium 139 133 - 145 mmol/L LAB CHEMISTRY METHOD 04/11/2024 10:48 AM [facility] Potassium 3.8 3.5 - 5.5 mmol/L LAB CHEMISTRY METHOD 04/11/2024 10:48 AM [facility] Chloride 107 96 - 110 mmol/L LAB CHEMISTRY METHOD 04/11/2024 10:48 AM [facility] CO2 28 21 - 32 mmol/L LAB CHEMISTRY METHOD 04/11/2024 10:48 AM [facility] Anion Gap 4 3 - 11 LAB CHEMISTRY METHOD 04/11/2024 10:48 AM [facility] Glucose 88 70 - 100 mg/dL LAB CHEMISTRY METHOD 04/11/2024 10:48 AM [facility] BUN 20 5 - 25 mg/dL LAB CHEMISTRY METHOD 04/11/2024 10:48 AM [facility] Creatinine 0.78 0.70 - 1.30 mg/dL LAB CHEMISTRY METHOD 04/11/2024 10:48 AM [facility] eGFR 88 >=60 mL/min/1. 73m2 LAB CHEMISTRY METHOD 04/11/2024 10:48 AM [facility] Comment:Calculation based on the??Chronic Kidney Disease Epidemiology Collaboration (CKD-EPI) equation refit??without adjustment for race. BUN/Creatinine Ratio 25.6 LAB CHEMISTRY METHOD 04/11/2024 10:48 AM [facility] Calcium 9.3 8.5 - 10.5 mg/dL LAB CHEMISTRY METHOD 04/11/2024 10:48 AM [facility] Blood Venous blood specimen / Unknown Venipuncture / Unknown 04/11/2024 6:05 AM EST 04/11/2024 9:57 AM EST us Beth Villarreal MD LAB BLOOD ORDERABLES Final Resul t [facility] [address] [place] [address], [place] [phone] * (ABNORMAL) Complete blood count (04/11/2024 6:05 AM EST) [facility] WBC 6.1 4.8 - 10.8 K/mcL LAB HEMETOLOGY METHOD 04/11/2024 10:24 AM [facility] RBC 3.90(L) 4.50 - 5.50 M/mcL LAB HEMETOLOGY METHOD 04/11/2024 10:24 AM [facility] Hemoglobin 11.8(L) 13.5 - 17.5 g/dL LAB HEMETOLOGY METHOD 04/11/2024 10:24 AM [facility] Hematocrit 36.7(L) 42.0 - 54.0 % LAB HEMETOLOGY METHOD 04/11/2024 10:24 AM [facility] MCV 93.4 79.0 - 98.0 FL LAB HEMETOLOGY METHOD 04/11/2024 10:24 AM [facility] MCH 30.0 27.0 - 32.0 pcg LAB HEMETOLOGY METHOD 04/11/2024 10:24 AM [facility] MCHC 32.2 32.0 - 37.0 g/dL LAB HEMETOLOGY METHOD 04/11/2024 10:24 AM [facility] RDW 14.6 11.0 - 15.0 % LAB HEMETOLOGY METHOD 04/11/2024 10:24 AM [facility] Platelets 216 130 - 400 K/mcL LAB HEMETOLOGY METHOD 04/11/2024 10:24 AM [facility] MPV 10.3 7.0 - 11.0 FL LAB HEMETOLOGY METHOD 04/11/2024 10:24 AM [facility] NRBC 0.0 <1.0 % LAB HEMETOLOGY METHOD 04/11/2024 10:24 AM [facility] NRBC Absolute 0.00 <0.10 K/mcL LAB HEMETOLOGY METHOD 04/11/2024 10:24 AM EST [facility] Blood Venous blood specimen / Unknown Venipuncture / Unknown 04/11/2024 6:05 AM EST 04/11/2024 9:57 AM EST Beth Villarreal MD LAB BLOOD ORDERABLES Final Resul t [facility] [address] [place] [address], documented in this encounter Visit Diagnoses Diagnosis Chronic obstructive pulmonary disease, unspecified (CMS/HCC) documented in this encounter Care Teams Medical Doctor Relationship Specialty Start Date End Date Beth Villarreal MD [address] [place] [address] [address] [place] [address] PCP - General Geriatric Medicine 04/11/24 documented as of this encounter
== END 2024-06-20 09:54 | disposition home or self-care (01) ==
LOC: HO.HKAS 09:12
PROVIDERS: PCP Nurse Practitioner Family; Visit Provider Internal Medicine Nephrology
DX: I10 Essential (primary) hypertension (principal)
CPT/HCPCS: 99214

== ENCOUNTER → 2024-06-20 09:11 | Outpatient (BNVA) | payer MEDICARE, MEDICAID, SELFPAY | PROVIDERS: Visit Provider Internal Medicine Nephrology | DX: I10 Essential (primary) hypertension (principal) | CPT/HCPCS: 99212 ==

== ENCOUNTER 2024-12-19 09:11 | Outpatient (AMB) | payer MEDICARE, MEDICAID, SELFPAY ==
--- NOTE | 2024-12-19 09:28 | HO.NEPHOV ---
Vital Signs 12/19/24 09:31 Height 5 ft 9 in Weight 98 lb 2 oz BMI 14.5 BP 132/82 Blood Pressure Location Lt brachial Position Sitting Intake Visit Reasons: 6mon follow-up w/labs-LVM Environmental Solutions Engineer Required: No Accompanied by: Self / Same As Patient Allergies atenolol Allergy (Mild, Verified 12/19/24 09:31) Rash fluvastatin (From Lescol) Allergy (Mild, Verified 12/19/24 09:31) Rash Penicillins Allergy (Mild, Verified 12/19/24 09:31) Rash Constrast dye Allergy (Mild, Uncoded 04/21/23 15:29) N/V Lisinopril Allergy (Mild, Uncoded 04/21/23 15:29) Rash Sulfa drugs Allergy (Mild, Uncoded 04/21/23 15:29) Rash Verapamil Allergy (Mild, Uncoded 04/21/23 15:29) Rash HPI Comments Details: 83 year old man with prostate cancer was seen in follow up. Around 1989? when he underwent a TURP that revealed prostate cancer that was treated with radioactive seeds. In 2005 he had a PSA of 5.2 and in 11/2005 he underwent a set of prostate biopsies which revealed a [place] 6 adenocarcinoma in one location. He reports that he has been on injections (GnRH agonist) for many years and the records indicate that it was intermittent. His PSA decreased to the 2?3 range until 2010 when it was 4.2. It gradually increased until 05/2013 when it was 27.3 and then started to decrease slowly over time to a bing of 7.3 in 07/2016. Imaging in the recent past has not revealed any evidence of metastatic disease (T8 abnormality on bone scan was negative on CT). His PSA has been very gradually trending up . Oncologist is seeing him closely. He does not have any hematuria. He denied dysuria, nausea, fever, pedal edema, joint pain, epistaxis, hemoptysis, hematemesis or melena. His renal functions have been normal and his blood pressure is currently at goal [facility] Medical History (Updated 06/07/23 @ 17:00 by Rigoberto Edmondson MD) Adenoma of colon Cancer of prostate COPD (chronic obstructive pulmonary disease) HTN (hypertension) Lumbar facet joint pain Pancreatic duct dilated Constipation Cervical spinal stenosis Osteoporosis Hyperlipidemia Hearing loss Asthma Surgical History History of partial colectomy H/O arthroscopy of knee S/P TURP (transurethral resection of prostate) Social History Alcohol intake: current Alcohol intake frequency: a few times a week Alcohol type: beer Patient Tobacco Use Status: Never used Tobacco Review of Systems Const All systems reviewed & are unremarkable except as noted in HPI and below Physical Exam Const General: comfortable and no acute distress Orientation/consciousness: patient oriented x3 HEENT Head: Yes normocephalic Mouth: Normal oral and palatal mucosa present Eyes EOM: EOMs intact bilaterally Neck Neck: Yes supple Resp Auscultation: clear to auscultation bilaterally Cardio Jugular venous distension: no JVD Rate: regular rate GI Palpation (GI): Soft to palpation Auscultation: normal bowel sounds General: Yes no CVA tenderness Back/Spine/Pelvis Back: no CVA tenderness Skin General skin exam: no rashes or lesions noted Neuro General: patient oriented x3 and moves all extremities Extrem General: Yes no pedal edema Results Reviewed Nephrology Results: Sodium, (135-145) 142 mmol/L 06/02/23 Potassium, (3.3-5.1) 3.7 mmol/L 06/02/23 Chloride, (96-108) 109 mmol/L H 06/02/23 Carbon Dioxide, (22-29) 25 mmol/L 06/02/23 BUN, (9-16) 27 mg/dL H 06/02/23 Creatinine, (0.5-1.4) 0.79 mg/dL 06/02/23 Urine Protein, (Neg-Trace) Negative mg/dL 06/15/23 Assessment & Plan Assessment & Plan (1) HTN (hypertension): Code(s): I10 - Essential (primary) hypertension Category: Medical Qualifiers: Hypertension type: primary hypertension Qualified Code(s): I10 - Essential (primary) hypertension Plan Marky has longstanding hypertension with normal renal function. He has prostate cancer and is followed by Urology as well as Oncology. He had multiple imaging studies done by Oncology which has not shown any metastatic disease yet. He was encouraged to maintain good hydration and avoid nonsteroidal anti-inflammatories. He is taking nifedipine which is keeping his blood pressure at goal. His volume status is optimal and his recent electrolytes were acceptable. I did not make any medication changes today. Answered all questions Orders: Orders Electrolytes 7 Months I10 - Essential (primary) hypertension Calcium 7 Months I10 - Essential (primary) hypertension Blood Urea Nitrogen 7 Months I10 - Essential (primary) hypertension Creatinine 7 Months I10 - Essential (primary) hypertension Coding Level of Care Code Est Pt Level 4 (58240) Diagnoses Primary hypertension I10 Hypertension type: primary hypertension
[2024-12-19 09:31] VITALS: BP 132/82; BMI 14.5
--- OUTSIDE RECORDS SUMMARY | 2024-12-19 10:34 | XMS_ITS | Encounter Summary ---
Author Organization [facility] Address [address] [place] [address] Care Team Providers Care Paper Sales Manager Name Role Phone Beth Villarreal MD Primary Care Provider [phone] Encounter Details Date Type Department Care Team (Late st Contact Info) Description 02/18/2024 Lab Requisition [facility] - Main Lab 299 [facility] [place] [address] Beth Villarreal MD [address] [place] [address] Essential (primary) hypertension Social History Tobacco Use [...] LAB CHEMISTRY METHOD 02/21/2024 1:25 PM EST [facility] Potassium 4.6 3.5 - 5.5 mmol/L LAB CHEMISTRY METHOD 02/21/2024 1:25 PM [facility] Chloride 107 96 - 110 mmol/L LAB CHEMISTRY METHOD 02/21/2024 1:25 PM [facility] CO2 29 21 - 32 mmol/L LAB CHEMISTRY METHOD 02/21/2024 1:25 PM [facility] Anion Gap 5 3 - 11 LAB CHEMISTRY METHOD 02/21/2024 1:25 PM [facility] Glucose 90 70 - 100 mg/dL LAB CHEMISTRY METHOD 02/21/2024 1:25 PM [facility] BUN 16 5 - 25 mg/dL LAB CHEMISTRY METHOD 02/21/2024 1:25 PM [facility] Creatinine 0.86 0.70 - 1.30 mg/dL LAB CHEMISTRY METHOD 02/21/2024 1:25 PM [facility] eGFR 86 >=60 mL/min/1. 73m2 LAB CHEMISTRY METHOD 02/21/2024 1:25 PM [facility] Comment:Calculation based on the Chronic Kidney Disease Epidemiology Collaboration (CKD-EPI) equation refit without adjustment for race. BUN/Creatinine Ratio 18.6 LAB CHEMISTRY METHOD 02/21/2024 1:25 PM [facility] Calcium 9.7 8.5 - 10.5 mg/dL LAB CHEMISTRY METHOD 02/21/2024 1:25 PM [facility] Blood Venous blood specimen / Unknown Venipuncture / Unknown 02/21/2024 9:28 AM EST 02/21/2024 11:54 AM EST us Beth Villarreal MD LAB BLOOD ORDERABLES Final Resul t [facility] [address] [place] [address], * (ABNORMAL) Complete blood count (02/21/2024 9:28 AM EST) [facility] WBC 4.5(L) 4.8 - 10.8 K/mcL LAB HEMETOLOGY METHOD 02/21/2024 1:10 PM [facility] RBC 3.80(L) 4.50 - 5.50 M/mcL LAB HEMETOLOGY METHOD 02/21/2024 1:10 PM [facility] Hemoglobin 11.3(L) 13.5 - 17.5 g/dL LAB HEMETOLOGY METHOD 02/21/2024 1:10 PM [facility] Hematocrit 36.6(L) 42.0 - 54.0 % LAB HEMETOLOGY METHOD 02/21/2024 1:10 PM [facility] MCV 95.8 79.0 - 98.0 FL LAB HEMETOLOGY METHOD 02/21/2024 1:10 PM [facility] MCH 29.6 27.0 - 32.0 pcg LAB HEMETOLOGY METHOD 02/21/2024 1:10 PM [facility] MCHC 30.9(L) 32.0 - 37.0 g/dL LAB HEMETOLOGY METHOD 02/21/2024 1:10 PM [facility] RDW 13.9 11.0 - 15.0 % LAB HEMETOLOGY METHOD 02/21/2024 1:10 PM [facility] Platelets 380 130 - 400 K/mcL LAB HEMETOLOGY METHOD 02/21/2024 1:10 PM [facility] MPV 9.6 7.0 - 11.0 FL LAB HEMETOLOGY METHOD 02/21/2024 1:10 PM [facility] NRBC 0.0 <1.0 % LAB HEMETOLOGY METHOD 02/21/2024 1:10 PM [facility] NRBC Absolute 0.00 <0.10 K/mcL LAB HEMETOLOGY METHOD 02/21/2024 1:10 PM EST [facility] Blood Venous blood specimen / Unknown Venipuncture / Unknown 02/21/2024 9:28 AM EST 02/21/2024 11:58 AM EST Beth Villarreal MD LAB BLOOD ORDERABLES Final Resul t [facility] [address] [place] [address], documented in this encounter Visit Diagnoses Diagnosis Essential (primary) hypertension Unspecified essential hypertension documented in this encounter Care Teams Paper Sales Manager Relationship Specialty Start Date End Date Beth Villarreal MD [address] [place] [address] [address] [place] [address] PCP - General Geriatric Medicine 04/11/24 documented as of this encounter
--- OUTSIDE RECORDS SUMMARY | 2024-12-19 10:34 | XMS_ITS | Encounter Summary ---
Author Organization [facility] Address [address] [place] [address] Care Team Providers Care Steam Press Tender Name Role Phone Beth Villarreal MD Primary Care Provider [phone] Encounter Details Date Type Department Care Team (Late st Contact Info) Description 02/25/2024 Lab Requisition [facility] - Main Lab [address] [facility] [place] [address] Beth Villarreal MD [address] [place] [address] Essential (primary) hypertension Social History Tobacco Use [...] LAB CHEMISTRY METHOD 02/28/2024 3:21 PM EST [facility] Potassium 4.3 3.5 - 5.5 mmol/L LAB CHEMISTRY METHOD 02/28/2024 3:21 PM [facility] Chloride 109 96 - 110 mmol/L LAB CHEMISTRY METHOD 02/28/2024 3:21 PM [facility] CO2 28 21 - 32 mmol/L LAB CHEMISTRY METHOD 02/28/2024 3:21 PM [facility] Anion Gap 5 3 - 11 LAB CHEMISTRY METHOD 02/28/2024 3:21 PM [facility] Glucose 83 70 - 100 mg/dL LAB CHEMISTRY METHOD 02/28/2024 3:21 PM [facility] BUN 16 5 - 25 mg/dL LAB CHEMISTRY METHOD 02/28/2024 3:21 PM [facility] Creatinine 0.83 0.70 - 1.30 mg/dL LAB CHEMISTRY METHOD 02/28/2024 3:21 PM [facility] eGFR 87 >=60 mL/min/1. 73m2 LAB CHEMISTRY METHOD 02/28/2024 3:21 PM [facility] Comment:Calculation based on the Chronic Kidney Disease Epidemiology Collaboration (CKD-EPI) equation refit without adjustment for race. BUN/Creatinine Ratio 19.3 LAB CHEMISTRY METHOD 02/28/2024 3:21 PM [facility] Calcium 9.9 8.5 - 10.5 mg/dL LAB CHEMISTRY METHOD 02/28/2024 3:21 PM [facility] Blood Venous blood specimen / Unknown Venipuncture / Unknown 02/28/2024 8:33 AM EST 02/28/2024 11:40 AM EST us Beth Villarreal MD LAB BLOOD ORDERABLES Final Resul t [facility] [address] [place] [address], * (ABNORMAL) Complete blood count (02/28/2024 8:33 AM EST) [facility] [address] WBC 4.2(L) 4.8 - 10.8 K/mcL LAB HEMETOLOGY METHOD 02/28/2024 1:08 PM [facility] RBC 3.90(L) 4.50 - 5.50 M/mcL LAB HEMETOLOGY METHOD 02/28/2024 1:08 PM [facility] Hemoglobin 11.7(L) 13.5 - 17.5 g/dL LAB HEMETOLOGY METHOD 02/28/2024 1:08 PM [facility] Hematocrit 37.3(L) 42.0 - 54.0 % LAB HEMETOLOGY METHOD 02/28/2024 1:08 PM [facility] MCV 95.9 79.0 - 98.0 FL LAB HEMETOLOGY METHOD 02/28/2024 1:08 PM [facility] MCH 30.1 27.0 - 32.0 pcg LAB HEMETOLOGY METHOD 02/28/2024 1:08 PM [facility] MCHC 31.4(L) 32.0 - 37.0 g/dL LAB HEMETOLOGY METHOD 02/28/2024 1:08 PM [facility] RDW 14.2 11.0 - 15.0 % LAB HEMETOLOGY METHOD 02/28/2024 1:08 PM [facility] Platelets 234 130 - 400 K/mcL LAB HEMETOLOGY METHOD 02/28/2024 1:08 PM [facility] MPV 10.1 7.0 - 11.0 FL LAB HEMETOLOGY METHOD 02/28/2024 1:08 PM [facility] NRBC 0.0 <1.0 % LAB HEMETOLOGY METHOD 02/28/2024 1:08 PM [facility] NRBC Absolute 0.00 <0.10 K/mcL LAB HEMETOLOGY METHOD 02/28/2024 1:08 PM EST [facility] Blood Venous blood specimen / Unknown Venipuncture / Unknown 02/28/2024 8:33 AM EST 02/28/2024 11:40 AM EST Beth Villarreal MD LAB BLOOD ORDERABLES Final Resul t [facility] [address] [place] [address], documented in this encounter Visit Diagnoses Diagnosis Essential (primary) hypertension Unspecified essential hypertension documented in this encounter Care Teams Steam Press Tender Relationship Specialty Start Date End Date Beth Villarreal MD [address] [place] [address] [address] [place] [address] PCP - General Geriatric Medicine 04/11/24 documented as of this encounter
--- OUTSIDE RECORDS SUMMARY | 2024-12-19 10:34 | XMS_ITS | Encounter Summary ---
Author Organization [facility] Address [address] [place] [address] Care Team Providers Care Rn Stars Name Role Phone Beth Villarreal MD Primary Care Provider [phone] Encounter Details Date Type Department Care Team (Late st Contact Info) Description 02/12/2024 Lab Requisition [facility] - Main Lab 299 [facility] [place] [address] Beth Villarreal MD [address] [place] [address] Essential (primary) hypertension Social History Tobacco Use [...] Travel phlebotomy fee (02/14/2024 8:23 AM EST) [facility] TRAVEL PHLEBOTOMY FEE Completed 02/14/2024 2:01 PM [facility] Blood Venous blood specimen / Unknown Venipuncture / Unknown 02/14/2024 8:23 AM EST 02/14/2024 1:24 PM EST us Beth Villarreal MD LAB BLOOD ORDERABLES Final Resul t [facility] [address] [place] [address], * Basic metabolic panel (02/14/2024 8:23 AM [...] PM [facility] Comment:Calculation based on the Chronic Kidney Disease Epidemiology Collaboration (CKD-EPI) equation refit without adjustment for race. BUN/Creatinine Ratio 14.1 LAB CHEMISTRY METHOD 02/14/2024 3:32 PM EST [facility] Calcium 9.8 8.5 - 10.5 mg/dL LAB CHEMISTRY METHOD 02/14/2024 3:32 PM [facility] Blood Venous blood specimen / Unknown Venipuncture / Unknown 02/14/2024 8:23 AM EST 02/14/2024 1:24 PM EST us Beth Villarreal MD LAB BLOOD ORDERABLES Final Resul t [facility] [address] [place] [address], [place] [phone] * (ABNORMAL) Complete blood count (02/14/2024 8:23 [...] LAB HEMETOLOGY METHOD 02/14/2024 1:57 PM EST [facility] RDW 13.1 11.0 - 15.0 % LAB HEMETOLOGY METHOD 02/14/2024 1:57 PM EST [facility] Platelets 372 130 - 400 K/mcL LAB HEMETOLOGY METHOD 02/14/2024 1:57 PM [facility] MPV 9.6 7.0 - 11.0 FL LAB HEMETOLOGY METHOD 02/14/2024 1:57 PM EST [facility] NRBC 0.0 <1.0 % LAB HEMETOLOGY METHOD 02/14/2024 1:57 PM [facility] NRBC Absolute 0.00 <0.10 K/mcL LAB HEMETOLOGY METHOD 02/14/2024 1:57 PM [facility] Blood Venous blood specimen / Unknown Venipuncture / Unknown 02/14/2024 8:23 AM EST 02/14/2024 1:24 PM EST us Beth Villarreal MD LAB BLOOD ORDERABLES Final Resul t [facility] [address] [place] [address], documented in this encounter Visit Diagnoses Diagnosis Essential (primary) hypertension Unspecified essential hypertension documented in this encounter Care Teams Rn Stars Relationship Specialty Start Date End Date Beth Villarreal MD [address] [place] [address] [address] [place] [address] PCP - General Geriatric Medicine 04/11/24 documented as of this encounter
--- OUTSIDE RECORDS SUMMARY | 2024-12-19 10:34 | XMS_ITS | Encounter Summary ---
Author Organization [facility] Address [address] [place] [address] Care Team Providers Care Lead Javascript Developer Name Role Phone Beth Villarreal MD Primary Care Provider Encounter Details Date Type Department Care Team (Late st Contact Info) Description 04/11/2024 Lab Requisition [facility] - Main Lab 299 [facility] [place] [address] Beth Villarreal MD [address] [place] [address] Chronic obstructive pulmonary disease, unspecified (CMS/HCC V24, CMS/HCC V28) Social History Tobacco Use Types Packs/Day Years [...] mmol/L LAB CHEMISTRY METHOD 04/11/2024 10:48 AM [facility] Potassium 3.8 3.5 - 5.5 mmol/L LAB CHEMISTRY METHOD 04/11/2024 10:48 AM [facility] Chloride 107 96 - 110 mmol/L LAB CHEMISTRY METHOD 04/11/2024 10:48 AM [facility] CO2 28 21 - 32 mmol/L LAB CHEMISTRY METHOD 04/11/2024 10:48 AM [facility] Anion Gap 4 3 - 11 LAB CHEMISTRY METHOD 04/11/2024 10:48 AM [facility] Glucose 88 70 - 100 mg/dL LAB CHEMISTRY METHOD 04/11/2024 10:48 AM [facility] BUN 20 5 - 25 mg/dL LAB CHEMISTRY METHOD 04/11/2024 10:48 AM [facility] Creatinine 0.78 0.70 - 1.30 mg/dL LAB CHEMISTRY METHOD 04/11/2024 10:48 AM [facility] eGFR 88 >=60 mL/min/1. 73m2 LAB CHEMISTRY METHOD 04/11/2024 10:48 AM [facility] Comment:Calculation based on the Chronic Kidney Disease Epidemiology Collaboration (CKD-EPI) equation refit without adjustment for race. BUN/Creatinine Ratio 25.6 LAB CHEMISTRY METHOD 04/11/2024 10:48 AM [facility] Calcium 9.3 8.5 - 10.5 mg/dL LAB CHEMISTRY METHOD 04/11/2024 10:48 AM [facility] Blood Venous blood specimen / Unknown Venipuncture / Unknown 04/11/2024 6:05 AM EST 04/11/2024 9:57 AM EST us Beth Villarreal MD LAB BLOOD ORDERABLES Final Resul t [facility] [address] [place] [address], * (ABNORMAL) Complete blood count (04/11/2024 6:05 AM EST) [facility] WBC 6.1 4.8 - 10.8 K/mcL LAB HEMETOLOGY METHOD 04/11/2024 10:24 AM [facility] RBC 3.90(L) 4.50 - 5.50 M/mcL LAB HEMETOLOGY METHOD 04/11/2024 10:24 AM [facility] Hemoglobin 11.8(L) 13.5 - 17.5 g/dL LAB HEMETOLOGY METHOD 04/11/2024 10:24 AM [facility] Hematocrit 36.7(L) 42.0 - 54.0 % LAB HEMETOLOGY METHOD 04/11/2024 10:24 AM [facility] MCV 93.4 79.0 - 98.0 FL LAB HEMETOLOGY METHOD 04/11/2024 10:24 AM [facility] MCH 30.0 27.0 - 32.0 pcg LAB HEMETOLOGY METHOD 04/11/2024 10:24 AM [facility] MCHC 32.2 32.0 - 37.0 g/dL LAB HEMETOLOGY METHOD 04/11/2024 10:24 AM [facility] RDW 14.6 11.0 - 15.0 % LAB HEMETOLOGY METHOD 04/11/2024 10:24 AM [facility] Platelets 216 130 - 400 K/mcL LAB HEMETOLOGY METHOD 04/11/2024 10:24 AM [facility] MPV 10.3 7.0 - 11.0 FL LAB HEMETOLOGY METHOD 04/11/2024 10:24 AM [facility] NRBC 0.0 <1.0 % LAB HEMETOLOGY METHOD 04/11/2024 10:24 AM [facility] NRBC Absolute 0.00 <0.10 K/mcL LAB HEMETOLOGY METHOD 04/11/2024 10:24 AM EST [facility] Blood Venous blood specimen / Unknown Venipuncture / Unknown 04/11/2024 6:05 AM EST 04/11/2024 9:57 AM EST Beht Villarreal MD LAB BLOOD ORDERABLES Final Resul t [facility] [address] [place] [address], documented in this encounter Visit Diagnoses Diagnosis Chronic obstructive pulmonary disease, unspecified (CMS/HCC V24, CMS/HCC V28) documented in this encounter Care Teams Lead Javascript Developer Relationship Specialty Start Date End Date Beth Villarreal MD [address] [place] [address] [address] [place] [address] PCP - General Geriatric Medicine 04/11/24 documented as of this encounter
--- OUTSIDE RECORDS SUMMARY | 2024-12-19 10:34 | XMS_ITS | Clinical Summary ---
Author Organization [facility] Address [address] [place] [address] Phone Care Team Providers Care Title Coordinator Name Role Phone Beth Villarreal MD Primary Care Provider [phone] Immunizations Name Administration Dates Next Due Moderna [...] Vaccines (1 of 2) 1990 RSV Immunization Adult Patients (1 - 1-dose 75+ series) 08/05/2015 Cholesterol Screening (Lipid Panel) 03/14/2022 Falls Risk Assessment 03/14/2022 Medicare Annual Wellness Visit 03/14/2022 Social Influencers of Health Screening 03/14/2022 COVID-19 Vaccine ( - season) 2023 01/19/2022, 07/22/2021, 03/13/2021 Depression Screening 04/12/2024 Influenza Vaccine (#1) 2024 Hypertension/CHF/CAD Annual BMP Blood Test 04/11/2025 04/11/2024, [...] age to complete this topic Meningococcal B Vaccine Aged Out No l onger eligible based on patient's age to complete [...] disease, unspecified (CMS/HCC) from Last 3 Months or Most Recently Relevant to Health Maintenance Results * Basic metabolic panel (04/11/2024 6:05 AM EST) Sodium 139 133 - 145 mmol/L LAB CHEMISTRY METHOD 04/11/2024 10:[address] [facility] Potassium 3.8 3.5 - 5.5 mmol/L LAB CHEMISTRY METHOD 04/11/2024 10:[address] [facility] Chloride 107 96 - 110 mmol/L LAB CHEMISTRY METHOD 04/11/2024 10:[address] [facility] CO2 28 21 - 32 mmol/L LAB CHEMISTRY METHOD 04/11/2024 10:[address] [facility] Anion Gap 4 3 - 11 LAB CHEMISTRY METHOD 04/11/2024 10:[address] [facility] Glucose 88 70 - 100 mg/dL LAB CHEMISTRY METHOD 04/11/2024 10:[address] [facility] BUN 20 5 - 25 mg/dL LAB CHEMISTRY METHOD 04/11/2024 10:[address] [facility] Creatinine 0.78 0.70 - 1.30 mg/dL LAB CHEMISTRY METHOD 04/11/2024 10:[address] [facility] eGFR 88 >=60 mL/min/1. 73m2 LAB CHEMISTRY METHOD 04/11/2024 10:[address] [facility] Comment:Calculation based on the Chronic Kidney Disease Epidemiology Collaboration (CKD-EPI) equation refit without adjustment for race. BUN/Creatinine Ratio 25.6 LAB CHEMISTRY METHOD 04/11/2024 10:[address] [facility] Calcium 9.3 8.5 - 10.5 mg/dL LAB CHEMISTRY METHOD 04/11/2024 10:[address] [facility] Blood Venous blood specimen / Unknown Venipuncture / Unknown 04/11/2024 6:05 AM EST 04/11/2024 9:57 AM EST us Beth Villarreal MD LAB BLOOD ORDERABLES Final Resul t [facility] [address] [place] [address], from Last 3 Months or Most Recently Relevant to Health [place] [address] MEDICARE MEDICAID - [place] Care Teams Title Coordinator Relationship Specialty Start Date End Date Beth Villarreal MD [address] [place] [address] [address] [place] [address] PCP - General Geriatric Medicine 04/11/24
== END 2024-12-19 09:52 | disposition home or self-care (01) ==
LOC: HO.HKAS 09:12
PROVIDERS: Visit Provider Internal Medicine Nephrology
DX: I10 Essential (primary) hypertension (principal)
CPT/HCPCS: 99214

== ENCOUNTER → 2024-12-19 09:11 | Outpatient (BNVA) | payer MEDICARE, MEDICAID, SELFPAY | PROVIDERS: Visit Provider Internal Medicine Nephrology | DX: I10 Essential (primary) hypertension (principal); Z85.46 Personal history of malignant neoplasm of prostate | CPT/HCPCS: 99212 ==

== ENCOUNTER 2025-02-28 13:08 | Outpatient (AMB) | payer MEDICARE, MEDICAID, SELFPAY ==
[2025-02-28 13:37] VITALS: BMI 17.7
--- NOTE | 2025-02-28 13:37 | A.OFFVIS_ITS ---
Vital Signs 02/28/25 13:37 Height 5 ft 9 in Weight 120 lb BMI 17.7 Intake Visit Reasons: Bunion, toenail pain Intake Note: Marky is an 84 year old male who presents today as a new patient for an evaluation of his bilateral bunion and toenail pain. Patient states the bunion and toenail pain has been going on since 06/04/24. he purchased corn removal pad and warm water soaks and has found no relief for his symptoms. Allergies atenolol Allergy (Mild, Verified 02/28/25 13:37) Rash fluvastatin (From Lescol) Allergy (Mild, Verified 02/28/25 13:37) Rash Penicillins Allergy (Mild, Verified 02/28/25 13:37) Rash Constrast dye Allergy (Mild, Uncoded 04/21/23 15:29) N/V Lisinopril Allergy (Mild, Uncoded 04/21/23 15:29) Rash Sulfa drugs Allergy (Mild, Uncoded 04/21/23 15:29) Rash Verapamil Allergy (Mild, Uncoded 04/21/23 15:29) Rash HPI HPI Bunion, toenail pain: Details: 84-year-old male past medical history of prostate cancer, COPD, hypertension, spinal stenosis, polyarthritis including hands/knees/feet, gait instability presents in a wheel chair today, presents for initial evaluation of bunions and fungal nail infections. Patient states he has never seen a water treatment plant supervisor before. He notes mild pain to his bunions. Also states that he is unable to perform his own nail care due to the thickness of the nails and the severe arthritis to his hands. Also notes a history of left femur fracture, hip fracture, and SI injury. [facility] Medical History (Updated 02/28/25 @ 19:05 by Eddie Lynch DPM) Adenoma of colon Cancer of prostate COPD (chronic obstructive pulmonary disease) HTN (hypertension) Lumbar facet joint pain Pancreatic duct dilated Constipation Cervical spinal stenosis Osteoporosis Hyperlipidemia Hearing loss Asthma Surgical History History of partial colectomy H/O arthroscopy of knee S/P TURP (transurethral resection of prostate) Social History Alcohol intake: current Alcohol intake frequency: a few times a week Alcohol type: beer Patient Tobacco Use Status: Never used Tobacco Review of Systems Const All systems reviewed & are unremarkable except as noted in HPI and below Physical Exam Vital Signs: BMI result Body Mass Index 17.7 Extrem Other: *Bilateral Lower Extremity Focused Foot Exam Vascular: DP/PT 1/4 bilaterally, CFT<3s to digits, TG warm to cool, no pedal edema, pedal hair absent Derm: Skin: No open lesions, ulcerations, or calluses. Interdigital spaces: Clear, no maceration or fungal infection. Nails: Severely thickened elongated dystrophic discolored toenails x 10 with subungual debris. Neuro: Protective sensation grossly intact to bilateral lower extremities. Msk: track-bound severe hallux valgus deformities bilaterally with 10 degrees of dorsiflexion. rigid flexion deformity digits 2-5 PIPJ/DIPJ with extension deformty to 2nd MTP bilaterally Footwear Assessment: Shoes inspected; appropriate fit, no excessive wear, or foreign objects noted. Office Procedures AMB Debridement/Avulsion Podia Details: Procedure: Nail debridement Location: 10 nails bilateral feet Anesthesia: N/A Description: The affected toenails were cleansed with an antiseptic solution. Using sterile nail nippers and a rotary anju, dystrophic and mycotic nail material was carefully debrided and reduced in thickness. Care was taken to avoid trauma to the surrounding skin and nail bed. All debris was removed as tolerated. The area was inspected for signs of infection or ulceration. Patient tolerated the procedure well without complications. Tolerance: Patient tolerated procedure well, no immediate complications. Class B findings as per physical exam findings above. The patient has a diagnosis of polyarthritis and gait instability and presents with elongated, thickened toenails. Due to rigid arthritic changes to his foot, the patient is at increased risk for complications such as ulceration, infection, and difficulty with self-care. Debridement of elongated toenails is medically necessary to prevent development of pressure-related lesions, reduce risk of secondary infection, and maintain foot health in high-risk comorbidities. 04851-Oexscrlpxim of Nail 6+ Procedure code (CPT) selection complete Assessment & Plan Assessment & Plan (1) Hallux valgus, acquired, bilateral: Code(s): M20.11 - Hallux valgus (acquired), right foot; M20.12 - Hallux valgus (acquired), left foot Category: Medical Plan: * no surgical treatment at this time (2) Acquired hammertoes of both feet: Code(s): M20.41 - Other hammer toe(s) (acquired), right foot; M20.42 - Other hammer toe(s) (acquired), left foot Category: Medical Plan: * no surgical treatment at this time (3) Onychogryphosis: Code(s): L60.2 - Onychogryphosis Category: Medical Plan: * debrided elongated nails x10 using a sterile nail nipper (4) Gait instability: Code(s): R26.81 - Unsteadiness on feet Category: Medical Plan: * Presents in a wheel chair. Attributes gait instability due to left femur and hip fracture and SI wound. Orders: Orders AMB Debridement/Avulsion Podiatry Today L60.2 - Onychogryphosis Coding Level of Care Code New Pt Level 4 (96471) Diagnoses Hallux valgus, acquired, bilateral M20.11; M20.12 Acquired hammertoes of both feet M20.41; M20.42 Onychogryphosis L60.2 Gait instability R26.81 CPT Codes Skin Debridement - CPT: 74546-Ptofsbdaamg of Nail 6+ ([id number]) Time Spent (min) 15
--- OUTSIDE RECORDS SUMMARY | 2025-03-01 01:02 | XMS_ITS | Data Portability ---
Author Organization [place] [facility], Allergy Address [address] [address] Assessment Encounter Date Assessment Date Assessment LastModified by Organization Details LastModified Time 12/12/2024 12/12/2024 84-year-old male presents for hearing evaluation. He reports intermittent tinnitus, but is not particularly bothered by this. Otologic exam demonstrates TMs are intact and middle ear spaces are well aerated. Audiometric testing demonstrates right normal sloping to moderate neurosensory hearing. Left ear with moderately severe flat mixed hearing loss. Word recognition is good, 84%. Right tympanometry is normal. Unfortunately could not maintain seal for left tympanometry. Given age, comorbidities, and likelihood of incidental findings, an MRI to rule out retrocochlear pathology would be of low utility. Patient is not interested in surgical intervention, so will defer middle ear evaluation. Patient is medically cleared for amplification bilaterally. We reviewed amplification benefits and tinnitus-masking technology, but he is adamantly not interested at this time. Today we discussed the pathophysiology of tinnitus and the absence of consistently successful pharmacologic treatments. Recommend masking strategies to decrease awareness of the tinnitus, including using a white noise machine, music, or television.We discussed how exposure to loud noise can worsen tinnitus so I recommended hearing protection. We also discussed other ways to potentially help reduce awareness of tinnitus including avoidance of caffeine, salty meals and NSAIDs. Patient will return when convenient for formal throat evaluation. [email or web address] Not available 12/12/2024 14:40:59 02/07/2025 02/07/2025 84yo male with COPD/ emphysema, thyroid nodule, spinal stenosis, and prostate cancer presents for evaluation of longstanding dysphagia, solids worse than liquids. He endorses a 50lb weight loss this year. Denies hemoptysis, pharyngitis, or known acid reflux. He has a remote history of pulmonary tuberculosis and beryllium exposure. Oropharyngeal examination and fiberoptic laryngoscopy are benign without mass, lesion, or vocal cord abnormality. Recommend barium swallow study for further evaluation of dysphagia to solids. He is followed by pulmonology and oncology through [facility]. He will follow-up in 8 weeks to review swallow study results. [email or web address] Not available 02/07/2025 15:20:45 Plan of Treatment Reminders Order Date Submit Date Provider Last Modified By Organization Details Last Modified Time Details Appointments Establish ed 15 2024 10:00A M NAVEED ESPINOZA PA-C Not available Not available Not available Lab None recorded. Referral None recorded. Procedures None recorded. Surgeries None recorded. Imaging barium swallow study 2024 025 [email or web address] Not available 02/07/2025 14:14:30 Medication Orders None recorded. Patient TargetsNo targets recorded. Patient InstructionsNo instructions recorded. Reason for Referral None Reported. Results Created Date Observation Date Name Description Value Unit Range Abnormal Flag Note LastModifiedBy Organization Detail LastModifiedTime 12/13/19 25 audio gram No observ ation record ed. BARCODE Not Available 2024 15:35:17 Result Notes None recorded. Problems Name Problem SNOMED Code Status Onset Date Resolution Date Notes Provider Name and Address Organization Details Recorded Time Non-toxic uninodula r goiter 065588170 Active 2022 Nontoxic single thyroid nodule; Note: Date Diagnosed : 05/26/2022 10:06 AM (E04.1) Not Available [facility] 4 02:58:33 Mixed conductiv e AND sensorine ural hearing loss 09883850 Active 2024 ALFREDO RUEDA, MARGY [address] [facility] [address], [place], [address] , [place] - [facility] 5 13:42:15 Bilateral tinnitus 39900689820 02 Active 2024 NAVEED ESPINOZA PA-C [address] [facility] [address], [place], [address] , [place] - [facility] [place] [facility] 14:32:33 Dysphagia 25850561 Active 2024 NAVEED ESPINOZA PA-C [address] [facility],[place] [address], [place], [address] , [facility] - [facility] [place] 13:49:32 Problem Notes None recorded. Procedures Surgical History Date Name Laterality Status Provider Name and Address Organization Details Recorded Time 02/08/20 FOL_DP completed NAVEED ESPINOZA PA-C [address] [facility],[place] [address], [place], [address], [facility] - [facility] 02/06/2025 13:23:20 12/13/19 Comp Audio with Tymps - 95056 & [address] [facility] [address] [facility],[place] [address], [place], [address], [facility] - [facility] 12/12/2024 13:29:57 operation on hip joint completed Guerda Andrews [place] - [facility] 12/12/2024 13:17:42 percutaneous cholecystostomy completed Guerda Andrews [place] - [facility] 12/12/2024 13:18:12 Imaging Results None recorded. Procedure Notes None recorded. Medical Equipment None Reported. Allergies No known drug allergies Medications Name Sig Start Date Stop Date Status Note LastModified by Organization Details LastModified Time acetamino phen 325 mg tablet TAKE 1 TABLET BY MOUTH EVERY 4 HOURS NEEDED FOR PAIN active Not Available Not Available No t Available clindamyc in HCl 300 mg capsule TAKE 1 CAPSULE BY MOUTH 3 TIMES A DAY 02/07 completed Not Available Not Available Not Available azithromy nolberto 250 mg tablet TAKE 2 TABLETS BY MOUTH TODAY, THEN TAKE 1 TABLET DAILY FOR 4 DAYS DIRECTED 02/07 completed Not Available Not Available Not Available dronabino l 5 mg capsule active Medicati on ID: [id number] B rand Name: dronabin ol Send Method: E-Prescr ibed Sub s Allowed: subs OK Speci al Instruct ion: TAKE 1 CAPSULE BY MOUTH EVERY DAY FOR 30 DAYS Med icationG enericNa me: dronabin ol Not Available Not Available Not Available prednison e 20 mg tablet TAKE 2 TABLETS BY MOUTH EVERY DAY FOR 5 DAYS active Not Available Not Available No t Available lovastati n 40 mg tablet TAKE 1 TABLET BY MOUTH EVERY DAY active Not Available Not Available No t Available valacyclo vir 500 mg tablet TAKE 1 TABLET BY MOUTH TWICE A DAY FOR 3 DAYS active Not Available Not Available No t Available gentamici n 0.3 % eye drops active Medicati on ID: [id number] B rand Name: gentamic in Send Method: E-Prescr ibed Sub s Allowed: subs OK Medic ationGen ericName : gentamic in Not Available Not Available Not Available erythromy nolberto 5 mg/gram (0.5 %) eye ointment 02/07 completed Medicati on ID: [id number] B rand Name: erythrom ycin Sen d Method: E-Prescr ibed Sub s Allowed: subs OK Medic ationGen ericName : erythrom ycin Not Available Not Available Not Available docusate sodium 100 mg capsule TAKE 1 CAPSULE BY MOUTH TWICE A DAY NEEDED FOR HARD STOOL (11/21/22 ) active Not Available Not Available No t Available mirtazapi ne 15 mg tablet TAKE 1 TABLET BY MOUTH EVERYDAY AT BEDTIME active Not Available Not Available No t Available albuterol sulfate HFA 90 mcg/actua tion aerosol inhaler INHALE 2 PUFFS 4 TIMES A DAY NEEDED FOR WHEEZING active Not Available Not Available No t Available fluocinon elena 0.05 % topical cream active Medicati on ID: [id number] B rand Name: fluocino nide Sen d Method: E-Prescr ibed Sub s Allowed: subs OK Medic ationGen ericName : fluocino nide Not Available Not Available Not Available nifedipin e ER 60 mg tablet,ex tended release TAKE 1 TABLET BY MOUTH EVERY DAY active Not Available Not Available No t Available tobramyci n 0.3 %-dexamet hasone 0.1 % eye drops,[facility] active Medicati on ID: [id number] B rand Name: tobramyc in-dexam ethasone Send Method: E-Prescr ibed Sub s Allowed: subs OK Medic ationGen ericName : tobramyc in-dexam ethasone Not Available Not Available Not Available Vitamin D3 25 mcg (1,000 unit) tablet active Medicati on ID: [id number] B rand Name: Vitamin D3 Send Method: E-Prescr ibed Sub s Allowed: subs OK Speci al Instruct ion: TAKE 1 TABLET BY MOUTH EVERY DAY Medi cationGe nericNam e: Vitamin D3 Not Available Not Available Not Available Vitamin D3 25 mcg (1,000 unit) capsule TAKE 1 CAPSULE BY MOUTH EVERY DAY active Not Available Not Available No t Available chlorhexi dine gluconate 0.12 % mouthwash SWISH 15 ML FOR 30 SECONDS THEN SPIT. USE TWICE DAILY (MORNING AND EVENING) AFTER BRUSHING TEETH active Not Available Not Available No t Available Xtandi 40 mg capsule active Medicati on ID: [id number] B rand Name: Xtandi S end Method: E-Prescr ibed Sub s Allowed: subs OK Medic ationGen ericName : Xtandi Not Available Not Available Not Available Clenpiq 10 mg-3.5 gram-12 gram/160 mL oral solution active Medicati on ID: [id number] B rand Name: Clenpiq Send Method: E-Prescr ibed Sub s Allowed: subs OK Medic ationGen ericName : Clenpiq Not Available Not Available Not Available Vitals Date Recorded Body height Body mass index (BMI) Body weight Provider Name and Address Organization Details Last Updated DateTime 12/12/2024 175.26 cm 14.5 kg/m2 39896.05 g Guerda Andrews [place] [facility] 12/12/2024 13:53:01 Date Recorded Body height Body mass index (BMI) Body weight Provider Name and Address Organization Details Last Updated DateTime 02/07/2025 175.26 cm 16.1 kg/m2 80326.57 g Guerda Andrews [place] [facility] 02/07/2025 13:46:48 Social History Question Answer Notes LastModified by Organizat ion Details LastModified Time Tobacco Smoking Status Never Smoker Guerda meza [place] [facility] 12/12/2024 13:17:18 What Type Of Comfort Station Supervisor Do You Use? None Information not available 12/12/2024 Sex: Unknown Functional Status None recorded. Mental Status None recorded. Family History Nothing Reported. Medical History Condition Response Allergies/Hayfever N Heart Problems N Anxiety Y Tonsil Infections N Emphysema N Migraines N Thyroid Problems N Depression Y COPD Y Developmental Delay N Glaucoma N Nasal or Sinus Problems N Anemia N Immune System Disorder N Anesthesia Complications N Heart Attack ([place]) N Other Skin Condition N Diabetes N Rhinitis N Bleeding Disorder N Food Allergy N Hearing Loss N Arthritis Y Hyperlipidemia N Cancer Y Stroke N Dementia N Nasal polyps N Asthma N Sleep Disorder N High Cholesterol N GERD/Reflux N Liver Disease N Headaches N Fibromyalgia N Hypertension N Speech Delay N Kidney Disease N Past Encounters Encounter ID Performer Location Encounter Start Date Encounter Closed Date Diagnosis/Indication Diagnosis SNOMED-CT Code Diagnosis ICD10 Code Diagnosis IMO Codes Diagnosis Note [id number] NAVEDE ESPINOZA PA-C [facility] [address] [address] 12/12/2024 12:45:18 12/12/2024 15:05:30 Mixed conductive AND sensorineural hearing loss 85554055 H90.A32 [id number] Audiologic al evaluation results: 12/12/2024Ri ght ear:Normal sloping to a moderate sensorineu ral hearing loss with good word recognitio n.Left ear:Modera tely-sever e flat mixed hearing loss with good word recognitio n. Tympanomet ry:Right Ear:Type ALeft Ear:Could not maintain a hermetic seal Bilateral tinnitus 67419 86820 102 H93.13 [id number] NAVEED ESPINOZA PA-C [facility] [address] [address] 02/07/2025 13:31:46 02/07/2025 14:14:29 Dysphagia 10317066 R13.10 Health Concerns Section Related Observation LastModified by Organization Detai ls LastModified Time None Recorded Concern Status LastModified by Organization Details LastModified Time None Recorded Advance Directives Directive None Recorded Payers Insurance Date Sequence Insurance Name Policy Number Policy Lopez Covered Member ID Lopez Member ID Guarantor Name 12/12/2024 2 [place] [facility] Marky Luna [id number] Marky Luna 02/04/2025 1 [employer] [id number] Val Luna [id number] Marky Luna 01/23/2025 2 [place] [facility] Marky Luna [id number] Marky Luna Notes Date Note Type Note Provider Name and Address Organization Details Recorded Time 12/12/2024 text/html ROS as noted in the [facility] 84yo male presents for evaluation of intermittent tinnitus that started ~6 months ago. Denies perceivable hearing loss, vertigo, ear pain, or ear drainage. He is unsure if it is unilateral. He has experienced clicking and scratching sounds, like there is a squirrel or bat in the attic, 8 times in total. Denies prior ear infections, prior ear surgeries, or significant loud noise exposure. He is not a smoker and denies history of seasonal allergies. Patient has a history of thyroid nodule. This was followed repeat ultrasounds ordered by his PCP. He reports throat irritation with swallowing. NETTA LINDQUIST MD [address] [facility],[address], [address], [place] - [facility] 12/12/2024 15:47:37 02/07/2025 text/html ROS as noted in the [facility] 84yo male former marijuana smoker with COPD/ emphysema (followed by [facility] pulm), thyroid nodule (followed by PCP), and spinal stenosis presents for throat evaluation. Remote history of pulmonary tuberculosis, beryllium exposure, prostate cancer, HTN, HLD and frailty. He reports longstanding difficulty swallowing, solids > liquids. Occasional choking. Also has globus sensation centrally and excessive mucus production and PND. 50lb weight loss, may be related to prostate cancer. Denies hemoptysis or throat pain. No history of acid reflux. He had a swallow study in the distant past while living at a longterm, and was recommended a liquid diet. These records are not available for review. [facility] pulmonolgy note 01/2025:He is having symptoms related to his COPD that are uncontrolled. We will start him on anoro ellipta today, and he can continue with his rescue albuterol. He would also benefit from oxygen needs assessment given his markedly reduced DLCO. I discussed and recommended pulmonary rehabilitation to him today, but he declines. He is up to date on flu, pneumonia and RSV vaccines. Delvis Winslow, 100 [facility] [address], [place], [address], [place] - [facility] 02/07/2025 16:21:35
--- OUTSIDE RECORDS SUMMARY | 2025-03-01 01:02 | XMS_ITS | Continuity of Care Document ---
Author Organization [place] - [facility], [facility] Address [address] [place] [address] Assessment Encounter Date Assessment Date Assessment LastModified by Organization Details LastModified Time 02/07/2025 02/07/2025 84yo male with COPD/ emphysema, [...] is followed by pulmonology and oncology through [facility]. He will follow-up in 8 weeks [...] instructions recorded. Reason for Referral None Reported. Problems Name Problem SNOMED Code Status Onset Date Resolution Date Notes Provider Name and Address Organization Details Recorded Time Non-toxic uninodula r goiter 730879409 Active 2022 Nontoxic single thyroid nodule; Note: Date Diagnosed : 05/26/2022 10:06 AM (E04.1) Not Available [facility] 02:58:33 Mixed conductiv e AND sensorine ural hearing loss 66209374 Active 2024 ALFREDO RUEDA, AUD [address],[place] [address], [place], [address] , [place] - [facility] 13:42:15 Bilateral tinnitus 40690186660 02 Active 2024 NAVEED ESPINOZA PA-C [address] [facility],[place] [address], [place], [address] , [place] - [facility] 14:32:33 Dysphagia 45129713 Active 2024 NAVEED ESPINOZA PA-C [address] [facility],[place] [address], [place], [address] , [place] - [facility] 13:49:32 Problem Notes None recorded. Procedures Surgical History Date Name Laterality Status Provider Name and Address Organization Details Recorded Time 02/08/20 FOL_DP completed NAVEED ESPINOZA PA-C [address] [facility],[place] [address], [place], [address], [place] - [facility] 02/06/2025 13:23:20 12/13/19 Comp Audio with Tymps - 41300 & 76172 completed ALFREDO RUEDA, AUD [address] [facility],[place] [address], [place], [address], [place] - [facility] 12/12/2024 13:29:57 operation on hip joint completed Guerda Andrews [place] - [facility] 12/12/2024 13:17:42 percutaneous cholecystostomy completed Guerda Andrews [place] - [facility] 12/12/2024 13:18:12 Imaging Results None recorded. Procedure [...] 5 mg capsule active Medicati on ID: [id number] B rand Name: dronabin ol Send Method: [...] % eye drops active Medicati on ID: [id number] B rand Name: gentamic in Send Method: E-Prescr ibed Sub s Allowed: subs OK Medic ationGen ericName : gentamic in Not Available Not Available Not Available erythromy nolberto 5 mg/gram (0.5 %) eye ointment 02/07 completed Medicati on ID: [id number] B rand Name: erythrom ycin Fernando ford Method: E-Prescr ibed Sub s Allowed: subs [...] % topical cream active Medicati on ID: [id number] B rand Name: fluocino nide Fernando ford Method: E-Prescr ibed Sub s Allowed: subs OK Medic ationGen ericName : fluocino nide Not Available Not Available Not Available nifedipin e ER 60 mg tablet,ex tended release TAKE 1 TABLET BY MOUTH EVERY DAY active Not Available Not Available No t Available tobramyci n 0.3 %-dexamet hasone 0.1 % eye drops,michael penon active Medicati on ID: [id number] B rand Name: tobramyc in-dexam ethasone Send Method: E-Prescr ibed Sub s Allowed: subs OK Medic ationGen ericName : tobramyc in-dexam ethasone Not Available Not Available Not Available Vitamin D3 25 mcg (1,000 unit) tablet active Medicati on ID: [id number] B rand Name: Vitamin D3 Send Method: [...] 40 mg capsule active Medicati on ID: [id number] B rand Name: Xtandi S end Method: E-Prescr ibed Sub s Allowed: subs OK Medic ationGen ericName : Xtandi Not Available Not Available Not Available Clenpiq 10 mg-3.5 gram-12 gram/160 mL oral solution active Medicati on ID: [id number] B rand Name: Clenpiq Send Method: E-Prescr ibed Sub s Allowed: subs OK Medic ationGen ericName : Clenpiq Not Available Not Available Not Available Vitals Date Recorded Body height Body mass index (BMI) Body weight Provider Name and Address Organization Details Last Updated DateTime 02/07/2025 175.26 cm 16.1 kg/m2 94276.57 g Guerda Andrews [place] - [facility] 02/07/2025 13:46:48 Social History Question Answer Notes LastModified by Organizat ion Details LastModified Time Tobacco Smoking Status Never Smoker Guerda mezaHELEN - [facility] 12/12/2024 13:17:18 What Type Of Investment Accounting Clerk Do You Use? None Information not available [...] Disorder N Anesthesia Complications N Heart Attack ([place]) N Other Skin Condition N Diabetes N [...] ICD10 Code Diagnosis IMO Codes Diagnosis Note [id number] NAVEED ESPINOZA PA-C [facility] [address] [address] 02/07/2025 13:31:46 02/07/2025 14:14:29 Dysphagia 79885121 R13.10 Health Concerns Section Related Observation LastModified by Organization Detai ls LastModified Time None Recorded Concern Status LastModified by Organization Details LastModified Time None Recorded Payers Encounter Date Sequence Insurance Name Policy Number Policy Lopez Covered Member ID Lopez Member ID Guarantor Name 02/07/2025 1 [employer] [id number] Marky Luna [id number] Marky Luna 02/07/2025 2 [place] [facility] Marky Glover [facility] [id number] Marky Luna Notes Date Note Type Note Provider Name and Address Organization Details Recorded Time 02/07/2025 text/html ROS as noted in the HPI 84yo male former marijuana smoker with COPD/ emphysema (followed by [facility] pulm), thyroid nodule (followed by PCP), [...] the distant past while living at a senior living, and was recommended a liquid diet. These records are not available for review. [facility] pulmonolgy note 01/2025:He is having symptoms [...] flu, pneumonia and RSV vaccines. Delvis Winslow, DO [address] [facility],[place] [address], [place], [address], [place] - [facility] 02/07/2025 16:21:35
--- OUTSIDE RECORDS SUMMARY | 2025-03-01 01:02 | XMS_ITS | Continuity of Care Document ---
Author Organization [place] - [facility], [facility] Address [address] [place] [address] Assessment Encounter Date Assessment Date Assessment LastModified [...] throat evaluation. [email or web address] Not available 12/12/2024 14:40:59 Plan of Treatment Reminders Order Date Submit Date Provider Last Modified By Organization Details Last Modified Time Details Appointments Establish ed 15 2024 10:00A M NAVEED ESPINOZA PA-C Not available Not available Not available Lab None recorded. Referral None recorded. Procedures None recorded. Surgeries None recorded. Imaging None recorded. Medication Orders None recorded. 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 02:58:33 Mixed conductiv e AND sensorine ural hearing loss 70576372 Active 2024 MARGY VELAZQUEZ [address] [place] [address],[address], [address] , [facility] - [facility] 5 13:42:15 Bilateral tinnitus 29940415982 02 Active 2024 NAVEED ESPINOZA PA-C [address] [place] [address] [place], [address] , [facility] - [facility] 5 14:32:33 Dysphagia 16490878 Active 2024 NAVEED ESPINOZA PA-C [address] [place] [address] [place], [address] , [facility] - [facility] 5 13:49:32 Problem Notes None recorded. Procedures Surgical History Date Name Laterality Status Provider Name and Address Organization Details Recorded Time 02/08/20 25 FOL_DP completed NAVEED ESPINOZA PA-C [address] [place] [address],[address], [address], [facility] - [facility] 02/06/2025 13:23:20 12/13/19 25 Comp Audio with Tymps - 02118 & 22353 completed MARGY VELAZQUEZ [address], [address], [place] - [facility] 12/12/2024 13:29:57 operation on hip joint completed Guerda Andrews [place] - [facility] 12/12/2024 13:17:42 percutaneous cholecystostomy completed Guerda Andrews [place] - [facility] 12/12/2024 13:18:12 Imaging Results None recorded. Procedure [...] 5 mg capsule active Medicati on ID: [id number] B rand Name: dronabin ol Send Method: [...] % eye drops active Medicati on ID: [id number] B rand Name: gentamic in Send Method: E-Prescr ibed Sub s Allowed: subs OK Medic ationGen ericName : gentamic in Not Available Not Available Not Available erythromy nolberto 5 mg/gram (0.5 %) eye ointment 02/07 completed Medicati on ID: [id number] B rand Name: erythrom ycin Sen d [...] % topical cream active Medicati on ID: [id number] B rand Name: fluocino nide Sen d Method: E-Prescr ibed Sub s Allowed: subs OK Medic ationGen ericName : fluocino nide Not Available Not Available Not Available nifedipin e ER 60 mg tablet,ex tended release TAKE 1 TABLET BY MOUTH EVERY DAY active Not Available Not Available No t Available tobramyci n 0.3 %-dexamet hasone 0.1 % eye drops,michael pension active Medicati on ID: [id number] B rand Name: tobramyc in-dexam ethasone Send Method: E-Prescr ibed Sub s Allowed: subs OK Medic ationGen ericName : tobramyc in-dexam ethasone Not Available Not Available Not Available Vitamin D3 25 mcg (1,000 unit) tablet active Medicati on ID: [id number] B rand Name: Vitamin D3 Send Method: [...] 40 mg capsule active Medicati on ID: [id number] B rand Name: Xtandi S end Method: E-Prescr ibed Sub s Allowed: subs OK Medic ationGen ericName : Xtandi Not Available Not Available Not Available Clenpiq 10 mg-3.5 gram-12 gram/160 mL oral solution active Medicati on ID: [id number] B rand Name: Castillo Send Method: E-Prescr ibed Sub s Allowed: subs OK Medic Allyson ericName : Castillo Not Available Not Available Not Available Vitals Date Recorded Body height Body mass index (BMI) Body weight Provider Name and Address Organization Details Last Updated DateTime 12/12/2024 175.26 cm 14.5 kg/m2 69201.05 g Guerda Andrews [place] - [facility] 12/12/2024 13:53:01 Social History Question Answer Notes LastModified by Organizat ion Details LastModified Time Tobacco Smoking Status Never Smoker Guerda meaz [place] - [facility] 12/12/2024 13:17:18 What Type Of Drawer In Jacquard Loom Do You Use? None Information not available 12/12/2024 Sex: Unknown Functional Status None recorded. Mental Status None recorded. Family History Nothing Reported. Medical History Condition Response Allergies/Hayfever N Heart Problems N Anxiety Y Tonsil Infections N Emphysema N Migraines N Thyroid Problems N COPD Y Depression Y Developmental Delay N Glaucoma N Nasal or Sinus Problems N Anemia N Immune System Disorder N Anesthesia Complications N Heart Attack ([place]) N Other Skin Condition N Diabetes N [...] ICD10 Code Diagnosis IMO Codes Diagnosis Note [id number] NAVEED ESPINOZA PA-C [facility] of [address] [address] 12/12/2024 12:45:18 12/12/2024 15:05:30 Mixed conductive AND sensorineural hearing loss [id number] H90.A32 [id number] Audiologic al evaluation results: 12/12/2024Ri ght ear:Normal sloping to a moderate sensorineu ral hearing loss with good word recognitio n.Left ear:Modera tely-sever e flat mixed hearing loss with good word recognitio n. Tympanomet ry:Right Ear:Type ALeft Ear:Could not maintain a hermetic seal Bilateral tinnitus 38720 89142 102 H93.13 [id number] Health Concerns Section Related Observation LastModified by Organization Detai ls LastModified Time None Recorded Concern Status LastModified by Organization Details LastModified Time None Recorded Payers Encounter Date Sequence Insurance Name Policy Number Policy Lopez Covered Member ID Lopez Member ID Guarantor Name 12/12/2024 1 [employer] [id number] Marky Luna [id number] Marky Luna 12/12/2024 2 [place]: [facility] Marky Luna [id number] Marky Luna Notes Date Note Type Note Provider Name and Address Organization Details Recorded Time 12/12/2024 text/html ROS as noted in the HPI 84yo male presents for evaluation of intermittent [...] throat irritation with swallowing. NETTA LINDQUIST MD [address] [place] [address], [address], [place] - [facility] 12/12/2024 15:47:37
== END 2025-02-28 14:10 | disposition home or self-care (01) ==
LOC: HO.HPODS 13:09
PROVIDERS: Visit Provider Student in an Organized Health Care Education/Training Program
DX: M20.11 Hallux valgus (acquired), right foot (principal); M20.12 Hallux valgus (acquired), left foot; M20.41 Other hammer toe(s) (acquired), right foot; M20.42 Other hammer toe(s) (acquired), left foot; L60.2 Onychogryphosis; R26.81 Unsteadiness on feet; M19.041 Primary osteoarthritis, right hand; M19.042 Primary osteoarthritis, left hand
CPT/HCPCS: 11721; 99204

== ENCOUNTER → 2025-02-28 13:08 | Outpatient (BNVA) | payer MEDICARE, MEDICAID, SELFPAY | PROVIDERS: Visit Provider Student in an Organized Health Care Education/Training Program | DX: M20.11 Hallux valgus (acquired), right foot (principal); M20.12 Hallux valgus (acquired), left foot; M20.41 Other hammer toe(s) (acquired), right foot; M20.42 Other hammer toe(s) (acquired), left foot; L60.2 Onychogryphosis; M79.675 Pain in left toe(s); M79.674 Pain in right toe(s); R26.81 Unsteadiness on feet; M13.0 Polyarthritis, unspecified; B35.1 Tinea unguium | CPT/HCPCS: 11721; 99202 ==